=== PATIENT | female | born 1955 | race African-American/Black ===

== ENCOUNTER 2016-09-25 13:46 | Emergency (ER) | payer MEDICARE, MEDICAID ==
--- NOTE | 2016-09-25 17:44 | ER Document Report ---
ED Respiratory Problem - General Chief Complaint: Shoulder Pain Stated Complaint: BACK PAIN Time seen by provider: 16:45 Mode of Arrival: Ambulatory Information source: Patient Notes: 60-year-old female presented to ED for right shoulder and upper back pain for 3 days denies any injury or trauma states she's been coughing since Sunday TRAVEL OUTSIDE OF THE [place] IN LAST 30 DAYS: No - HPI Patient complains to provider of: Cough, Short of breath Onset: Last week Duration: Continuous Initiating Event: URI Quality of pain: Sharp Severity: Moderate Pain Level: 3 Short of Breath: Mild Cough: Nonproductive Sputum amount: None Associated symptoms: Cough, PND, Runny nose, Sinus pain/pressure, Other - Back and right shoulder pain Similar symptoms previously: Yes Recently seen / treated by doctor: No - Related Data Allergies/Adverse Reactions: No Known Allergies Allergy (Verified 09/25/16 14:01) Past Medical History - General Information source: Patient - Social History Smoking Status: Current Every Day Smoker Cigarette use (# per day): Yes - 1/3ppd Chew tobacco use (# tins/day): No Frequency of alcohol use: None Drug Abuse: None Lives with: Alone Family History: None - Past Medical History Cardiac Medical History: Reports: Hx Atrial Fibrillation, Hx Congestive Heart Failure, Hx Coronary Artery Disease, Hx Heart Attack, Hx Hypercholesterolemia, Hx Hypertension, Hx Heart Murmur Pulmonary Medical History: Reports: Hx Bronchitis, Hx COPD Denies: Hx Tuberculosis Neurological Medical History: Reports: None Endocrine Medical History: Reports: Hx Hypothyroidism Renal/ Medical History: Reports: None Malignancy Medical History: Reports: None GI Medical History: Reports: None Musculoskeltal Medical History: Reports Hx Arthritis Skin Medical History: Reports None Psychiatric Medical History: Reports: None Traumatic Medical History: Reports: None Infectious Medical History: Reports: None Past Surgical History: Reports: Hx Breast Surgery - bilat cysts, Hx Cardiac Surgery - CABG; defib, Hx Section, Hx Coronary Artery Bypass Graft - 2009 one-vessel bypass, Hx Pacemaker - Biventricular AICD/pacemaker, Hx Tubal Ligation, Hx Valve Replacement - Mitral valve and tricuspid valve repair - Immunizations Immunizations up to date: Yes Hx Diphtheria, Pertussis, Tetanus Vaccination: Yes Hx Pneumococcal Vaccination: 09/24/13 Review of Systems - Review of Systems Constitutional: No symptoms reported EENT: Nose discharge, Sinus discharge Cardiovascular: No symptoms reported Respiratory: Cough Gastrointestinal: No symptoms reported Genitourinary: No symptoms reported Female Genitourinary: No symptoms reported Musculoskeletal: Back pain - Upper right back and shoulder pain Skin: No symptoms reported Hematologic/Lymphatic: No symptoms reported Neurological/Psychological: No symptoms reported Physical Exam - Vital signs Vitals: Temp Pulse Resp BP Pulse Ox 97.4 F 66 20 117/59 L 100 09/25/16 13:55 09/25/16 13:55 09/25/16 13:55 09/25/16 13:55 09/25/16 13:55 Interpretation: Normal - General General appearance: Appears well, Alert - HEENT Head: Normocephalic, Atraumatic Eyes: Normal Pupils: PERRL Ears: Normal External canal: Normal Tympanic membrane: Normal Sinus: Normal Nasal: Purulent discharge Mouth/Lips: Normal Mucous membranes: Normal Pharynx: Normal Neck: Normal - Respiratory Respiratory status: No respiratory distress Chest status: Nontender Breath sounds: Nonproductive cough, Rales Chest palpation: Normal - Cardiovascular Rhythm: Regular Heart sounds: Normal auscultation Murmur: No - Abdominal Inspection: Normal Distension: No distension Bowel sounds: Normal Tenderness: Nontender Organomegaly: No organomegaly - Back Back: Normal, Nontender - Extremities General upper extremity: Normal inspection, Nontender, Normal color, Normal ROM , Normal temperature General lower extremity: Normal inspection, Nontender, Normal color, Normal ROM , Normal temperature, Normal weight bearing. No: Irena's sign - Neurological Neuro grossly intact: Yes Cognition: Normal Orientation: AAOx4 Eliane Coma Scale Eye Opening: Spontaneous Rockwell Coma Scale Verbal: Oriented Eliane Coma Scale Motor: Obeys Commands Rockwell Coma Scale Total: 15 Speech: Normal Motor strength normal: LUE, RUE, LLE, RLE Sensory: Normal - Psychological Associated symptoms: Normal affect, Normal mood - Skin Skin Temperature: Warm Skin Moisture: Dry Skin Color: Normal Course - Re-evaluation Re-evalutation: 09/25/16 22:50 Discussed x-rays with patient and family and written report given to patient and family - Vital Signs Vital signs: Temp Pulse Resp BP Pulse Ox 97.8 F 68 18 118/65 95 09/25/16 18:42 09/25/16 18:42 09/25/16 18:42 09/25/16 18:42 09/25/16 18:42 - Diagnostic Test Radiology reviewed: Image reviewed, Reports reviewed Discharge - Discharge Clinical Impression: Upper respiratory infection Qualifiers: URI type: unspecified URI Qualified Code(s): J06.9 - Acute upper respiratory infection, unspecified Back pain Qualifiers: Back pain location: thoracic back pain Chronicity: acute Back pain laterality: right Qualified Code(s): M54.6 - Pain in thoracic spine Right shoulder pain Qualifiers: Chronicity: acute Qualified Code(s): M25.511 - Pain in right shoulder Condition: Stable Disposition: HOME, SELF-CARE Additional Instructions: UPPER RESPIRATORY ILLNESS: You have a viral infection of the respiratory passages -- a "cold." This common infection causes nasal congestion, drainage, and often sore throat and cough. It is highly contagious. The disease usually lasts about 10 to 14 days. There is no "cure" for the viral infection -- it must run its course. If there is a complication, such as bacterial infection in the nose, sinuses, middle ear, or bronchial tubes, antibiotics may be required. The antibiotics won't affect the virus. Drink plenty of fluids. A humidifier may help. An expectorant medication or decongestant may make you more comfortable. Use acetaminophen or ibuprofen for fever or aches. See the doctor if fever persists over two days, if there is any significant worsening of your symptoms, or if you simply fail to improve as expected. Upper Back Strain You have a strain of the upper back. "Strain" means stretching and partial tearing of muscle and tendon fibers. This can happen suddenly, such as when lifting, or can be due to chronic muscle tension. X-rays don't show back strain. X-rays are only taken if there's reason to suspect a problem in the bones. At first, you should cold-pack the painful area and rest. We often prescribe antiinflammatory medicine. If you are having muscle spasms, a muscle relaxer can help. As you begin to improve, it's important to strengthen and stretch the muscles. Your doctor will advise you on the proper care for your back at each stage in your recovery. You may be better in a few days -- or healing may take several weeks. If new symptoms develop ( such as radiation of pain, numbness, weakness, or tingling) occur, you should be re-examined. Further testing may be necessary Atelectasis Your symptoms are due to partial collapse of the lung, called atelectasis. When lung air sacs aren't filled properly with air, they can collapse. This is common after surgery. It may occur whenever breathing is weak or painful. To correct the collapse, we need to get your lung air sacs to open. Do breathing exercises for the next two days. Every 15 minutes while awake, rapidly suck in a full breath and hold it a few seconds. Sometimes we'll prescribe a machine to measure your progress. Call or return if there's increasing shortness of breath, fever or chills, increasing chest pain, productive cough, or coughing of blood. USE OF ACETAMINOPHEN (Tylenol): Acetaminophen may be taken for pain relief or fever control. It's much safer than aspirin, offering a wider range of "safe" dosages. It is safe during . Some brand names are Tylenol, Panadol, Datril, Anacin 3, Tempra, and Liquiprin. Acetaminophen can be repeated every four hours. The following are maximum recommended dosages: >89 pounds or adults 650 mg to 900 mg Acetaminophen can be repeated every four hours. Maximum dose not to exceed 4000 mg a day. Azithromycin Azithromycin (Zithromax) is a broad spectrum antibiotic in the same class as erythromycin. It can treat a variety of bacterial infections, but is most frequently used for respiratory infections. Azithromycin is extremely long-lasting. It accumulates in body tissues and continues to kill bacteria for many days. In order to improve absorption, Azithromycin should be taken at least one hour before or two hours after a meal. It does not have the same strong tendency to upset the stomach as erythromycin and is usually very well tolerated. Patients who have had a rash or other true allergic reactions to erythromycin should not take this medication. Call if you develop gastrointestinal distress, severe diarrhea, rash, hives, itching, or shortness of breath. SMOKING: If you smoke, you should stop smoking. The tar and chemicals in cigarette smoke are harmful. Smoking has been shown to cause: emphysema chronic bronchitis lung cancer mouth and throat cancer stomach and pancreas cancer premature aging defects In addition, smoking increases ear and lung infections in children of smokers. FOLLOW-UP CARE: If you have been referred to a physician for follow-up care, call the physician s office for an appointment as you were instructed or within the next two days. If you experience worsening or a significant change in your symptoms, notify the physician immediately or return to the Emergency Department at any time for re-evaluation. Prescriptions: Azithromycin [Zithromax 250 mg Tablet] 250 mg PO ASDIR PRN #6 tablet PRN Reason: Forms: Smoking Cessation Education, Return to Work Referrals: RONN GARCÍA MD [Primary Care Provider] - Follow up as needed
[2016-09-25 18:43] VITALS: BP 118/65
== END 2016-09-25 18:42 | disposition home or self-care (01) ==
LOC: ER 13:46
DX: J06.9 Acute upper respiratory infection, unspecified (principal); M54.6 Pain in thoracic spine; M25.511 Pain in right shoulder; R05 Cough; R06.02 Shortness of breath; F17.210 Nicotine dependence, cigarettes, uncomplicated; I48.91 Unspecified atrial fibrillation; I50.9 Heart failure, unspecified; I25.10 Atherosclerotic heart disease of native coronary artery without angina pectoris; E78.00 Pure hypercholesterolemia, unspecified; I10 Essential (primary) hypertension; J44.9 Chronic obstructive pulmonary disease, unspecified; E03.9 Hypothyroidism, unspecified; I25.2 Old myocardial infarction; Z95.1 Presence of aortocoronary bypass graft; Z95.810 Presence of automatic (implantable) cardiac defibrillator; Z95.2 Presence of prosthetic heart valve; Z98.51 Tubal ligation status
CPT/HCPCS: 71020; 87804; 99283

== ENCOUNTER → 2017-02-01 | Outpatient (CLI) | payer MEDICARE, MEDICAID ==
[2017-02-01 11:47] LABS: ANION GAP 14 (5-19); BLOOD UREA NITROGEN 34 mg/dL (7-20); CALCIUM 10.4 mg/dL (8.4-10.2); CARBON DIOXIDE 28 mmol/L (22-30); CHLORIDE 100 mmol/L (98-107); CREATININE RESULT 1.02 mg/dL (0.52-1.25); GLUCOSE 85 mg/dL (75-110); POTASSIUM 5.4 mmol/L (3.6-5.0); SODIUM 141.8 mmol/L (137-145)
== END ==
LOC: OD 10:46
PROVIDERS: ATTEND Internal Medicine
DX: R07.2 Precordial pain (principal); I50.22 Chronic systolic (congestive) heart failure; R06.09 Other forms of dyspnea; I25.10 Atherosclerotic heart disease of native coronary artery without angina pectoris; E78.4 Other hyperlipidemia; I42.8 Other cardiomyopathies; Z95.810 Presence of automatic (implantable) cardiac defibrillator; Z95.1 Presence of aortocoronary bypass graft; I34.0 Nonrheumatic mitral (valve) insufficiency; E87.5 Hyperkalemia; Z79.899 Other long term (current) drug therapy
CPT/HCPCS: 36415; 80048

== ENCOUNTER → 2017-02-14 | Outpatient (CLI) | payer MEDICARE, MEDICAID | LOC: OD 10:17 | PROVIDERS: ATTEND Internal Medicine | DX: R07.2 Precordial pain (principal); I50.22 Chronic systolic (congestive) heart failure; E87.5 Hyperkalemia; R06.09 Other forms of dyspnea; I25.10 Atherosclerotic heart disease of native coronary artery without angina pectoris; E78.4 Other hyperlipidemia; I34.0 Nonrheumatic mitral (valve) insufficiency; I42.8 Other cardiomyopathies; Z95.1 Presence of aortocoronary bypass graft; Z95.810 Presence of automatic (implantable) cardiac defibrillator; Z79.899 Other long term (current) drug therapy | CPT/HCPCS: 36415; 84132 ==

== ENCOUNTER → 2017-03-19 | Outpatient (CLI) | payer MEDICARE, MEDICAID ==
[2017-03-19 12:13] LABS: ANION GAP 10 (5-19); BLOOD UREA NITROGEN 17 mg/dL (7-20); CALCIUM 9.6 mg/dL (8.4-10.2); CARBON DIOXIDE 28 mmol/L (22-30); CHLORIDE 102 mmol/L (98-107); CREATININE RESULT 0.96 mg/dL (0.52-1.25); GLUCOSE 96 mg/dL (75-110); POTASSIUM 5.2 mmol/L (3.6-5.0); SODIUM 139.5 mmol/L (137-145)
== END ==
LOC: OD 10:59
PROVIDERS: ATTEND Internal Medicine
DX: R07.2 Precordial pain (principal); I50.22 Chronic systolic (congestive) heart failure; R06.09 Other forms of dyspnea; I25.10 Atherosclerotic heart disease of native coronary artery without angina pectoris; E78.4 Other hyperlipidemia; I42.8 Other cardiomyopathies; Z95.810 Presence of automatic (implantable) cardiac defibrillator; Z95.1 Presence of aortocoronary bypass graft; I34.0 Nonrheumatic mitral (valve) insufficiency; E87.5 Hyperkalemia; Z79.899 Other long term (current) drug therapy
CPT/HCPCS: 36415; 80048

== ENCOUNTER → 2017-05-10 | Outpatient (CLI) | payer MEDICARE, MEDICAID ==
[2017-05-10 14:12] LABS: ANION GAP 12 (5-19); BLOOD UREA NITROGEN 37 mg/dL (7-20); CALCIUM 9.9 mg/dL (8.4-10.2); CARBON DIOXIDE 29 mmol/L (22-30); CHLORIDE 100 mmol/L (98-107); CREATININE RESULT 1.42 mg/dL (0.52-1.25); GLUCOSE 99 mg/dL (75-110); SODIUM 141.2 mmol/L (137-145)
== END ==
LOC: OD 12:02
PROVIDERS: ATTEND Internal Medicine
DX: R07.2 Precordial pain (principal); I50.22 Chronic systolic (congestive) heart failure; R06.09 Other forms of dyspnea; I25.10 Atherosclerotic heart disease of native coronary artery without angina pectoris; E78.4 Other hyperlipidemia; I42.8 Other cardiomyopathies; Z95.810 Presence of automatic (implantable) cardiac defibrillator; Z95.1 Presence of aortocoronary bypass graft; I34.0 Nonrheumatic mitral (valve) insufficiency; E87.5 Hyperkalemia; Z79.899 Other long term (current) drug therapy
CPT/HCPCS: 36415; 80048

== ENCOUNTER 2017-10-05 09:50 | Emergency (ER) | payer MEDICARE, MEDICAID ==
[2017-10-05] MEDS ORDERED: ASPIRIN 81 MG TABLET, CHEWABLE PO ONE (11:02)
--- NOTE | 2017-10-05 11:06 | ER Document Report ---
ED Medical Screen (RME) - General Chief Complaint: Swelling of Lower Extremity Stated Complaint: LEG SWELLING Time Seen by Provider: 10/05/17 10:59 Notes: 61-year-old female here with complaints of bilateral leg swelling that started yesterday. She states this is the first time she has had leg swelling since her valve replacements in [place] several months ago. She also states that her baseline shortness of breath and chest pain has worsened since yesterday. She also reports that "I have a very weak heart" but does not know her ejection fraction. EXAM 1+ pitting edema bilateral lower extremities TRAVEL OUTSIDE OF THE [place] IN LAST 30 DAYS: No - Related Data Allergies/Adverse Reactions: No Known Allergies Allergy (Verified 10/05/17 09:51) Past Medical History - Past Medical History Cardiac Medical History: Reports: Hx Atrial Fibrillation, Hx Congestive Heart Failure, Hx Coronary Artery Disease, Hx Heart Attack, Hx Hypercholesterolemia, Hx Hypertension, Hx Heart Murmur Pulmonary Medical History: Reports: Hx Bronchitis, Hx COPD Denies: Hx Tuberculosis Endocrine Medical History: Reports: Hx Hypothyroidism Musculoskeltal Medical History: Reports Hx Arthritis Skin Medical History: Denies Hx MRSA Psychiatric Medical History: Denies: Hx Depression Past Surgical History: Reports: Hx Breast Surgery - bilat cysts, Hx Cardiac Surgery - CABG; defib, Hx Section, Hx Coronary Artery Bypass Graft - 2009 one-vessel bypass, Hx Pacemaker - Biventricular AICD/pacemaker, Hx Tubal Ligation, Hx Valve Replacement - Mitral valve and tricuspid valve repair - Immunizations Immunizations up to date: Yes Hx Diphtheria, Pertussis, Tetanus Vaccination: Yes Physical Exam - Vital signs Vitals: Temp Pulse Resp BP Pulse Ox 98.1 F 70 20 107/46 L 100 10/05/17 10:11 10/05/17 10:11 10/05/17 10:11 10/05/17 10:11 10/05/17 10:11 Course - Vital Signs Vital signs: Temp Pulse Resp BP Pulse Ox 98.1 F 70 20 107/46 L 100 10/05/17 10:11 10/05/17 10:11 10/05/17 10:11 10/05/17 10:11 10/05/17 10:11
[2017-10-05 11:39] LABS: ABSOLUTE BASOPHILS # (AUTO) 0.1 10^3/uL (0.0-0.2); ABSOLUTE EOSINOPHILS # (AUTO) 1.2 10^3/uL (0.0-0.6); ABSOLUTE LYMPHOCYTES (AUTO) 1.4 10^3/uL (0.5-4.7); ABSOLUTE MONOCYTES (AUTO) 0.5 10^3/uL (0.1-1.4); ABSOLUTE NEUT (AUTO) 3.4 10^3/uL (1.7-8.2); BASOPHILS % (AUTO) 1.3 % (0-2); EOSINOPHILS % (AUTO) 18.1 % (0-6); HEMOGLOBIN 10.2 g/dL (12.0-15.5); LYMPHOCYTES % (AUTO) 21.3 % (13-45); MEAN CORPUSCULAR HEMOGLOBIN 28.8 pg (27.0-33.4); MEAN CORPUSCULAR HGB CONC 32.1 g/dL (32.0-36.0); MEAN CORPUSCULAR VOLUME 90 fl (80-97); MONOCYTES % (AUTO) 7.5 % (3-13); PLATELET COUNT 232 10^3/uL (150-450); RED BLOOD COUNT 3.56 10^6/uL (3.72-5.28); RED CELL DISTRIBUTION WIDTH 14.4 % (11.5-14.0); SEGMENTED NEUTROPHILS % (AUTO) 51.8 % (42-78); TOTAL CELLS COUNTED % (AUTO) 100 %; WHITE BLOOD COUNT 6.6 10^3/uL (4.0-10.5)
[2017-10-05 12:12] LABS: ANION GAP 12 (5-19); BLOOD UREA NITROGEN 21 mg/dL (7-20); CALCIUM 10.2 mg/dL (8.4-10.2); CARBON DIOXIDE 30 mmol/L (22-30); CHLORIDE 102 mmol/L (98-107); GLUCOSE 76 mg/dL (75-110); POTASSIUM 5.5 mmol/L (3.6-5.0); SODIUM 144.1 mmol/L (137-145)
--- NOTE | 2017-10-05 12:20 | RADIOLOGY REPORT (SQ) ---
EXAM DESCRIPTION: CHEST PA/LAT COMPLETED DATE/TIME: 10/05/2017 11:47 am REASON FOR STUDY: SOB; eval pulm edema COMPARISON: 09/25/2016 NUMBER OF VIEWS: Two view. TECHNIQUE: Frontal and lateral radiographic views of the chest acquired. LIMITATIONS: None. FINDINGS: LUNGS AND PLEURA: No opacities, masses or pneumothorax. No pleural effusion. MEDIASTINUM AND HILAR STRUCTURES: Stable. HEART AND VASCULAR STRUCTURES: Heart enlarged without failure. Aorta normal for age. BONES: No acute findings. HARDWARE: CABG. Defibrillator. OTHER: No other significant finding. IMPRESSION: No acute findings in the chest. TECHNICAL DOCUMENTATION: JOB ID: [id number] [employer]- All Rights Reserved
[2017-10-05 12:30] LABS: TROPONIN I 0.047 ng/mL
--- NOTE | 2017-10-05 13:39 | ER Document Report ---
ED General - General Chief Complaint: Swelling of Lower Extremity Stated Complaint: LEG SWELLING Time Seen by Provider: 10/05/17 10:59 Notes: Patient had valvular heart repair done approximately 4 months ago. Noticed increasing swelling of her lower extremities. No shortness of breath. No other chest pain. No worsening symptoms at this time. Was told to come here. TRAVEL OUTSIDE OF THE [place] IN LAST 30 DAYS: No - HPI Onset: Last week Onset/Duration: Gradual Quality of pain: No pain Severity: Mild Associated symptoms: None - Related Data Allergies/Adverse Reactions: No Known Allergies Allergy (Verified 10/05/17 09:51) Home Medications: Current Home Medications Albuterol Sulfate [Proair HFA] 1 - 2 puff IH Q4 PRN 10/05/17 [History] Apixaban [Eliquis] 5 mg PO BID 10/05/17 [History] Aspirin [Aspirin EC] 81 mg PO DAILY 10/05/17 [History] Carvedilol 3.125 mg PO BID 10/05/17 [History] Dofetilide 250 mcg PO Q12 10/05/17 [History] Famotidine 20 mg PO BID 10/05/17 [History] Furosemide 80 mg PO DAILY 10/05/17 [History] Gabapentin 100 mg PO DAILY 10/05/17 [History] Latanoprost 2.5 ml OP DAILY 10/05/17 [History] Nitroglycerin 0.4 mg SL PRN PRN 10/05/17 [History] Oxycodone HCl/Acetaminophen [Oxycodone-Acetaminophen 5-325] 1 each PO Q4 [History] Potassium Chloride 20 meq PO DAILY 10/05/17 [History] Pravastatin Sodium 40 mg PO DAILY 10/05/17 [History] Ramipril [Altace] 5 mg PO DAILY 10/05/17 [History] Past Medical History - General Information source: Patient - Social History Smoking Status: Never Smoker Chew tobacco use (# tins/day): No Frequency of alcohol use: None Drug Abuse: None Family History: None Patient has suicidal ideation: No Patient has homicidal ideation: No - Past Medical History Cardiac Medical History: Reports: Hx Atrial Fibrillation, Hx Congestive Heart Failure, Hx Coronary Artery Disease, Hx Heart Attack, Hx Hypercholesterolemia, Hx Hypertension, Hx Heart Murmur Pulmonary Medical History: Reports: Hx Bronchitis, Hx COPD Denies: Hx Tuberculosis Endocrine Medical History: Reports: Hx Hypothyroidism Renal/ Medical History: Denies: Hx Peritoneal Dialysis Musculoskeltal Medical History: Reports Hx Arthritis Skin Medical History: Denies Hx MRSA Psychiatric Medical History: Denies: Hx Depression Past Surgical History: Reports: Hx Breast Surgery - bilat cysts, Hx Cardiac Surgery - CABG; defib, Hx Section, Hx Coronary Artery Bypass Graft - 2009 one-vessel bypass, Hx Pacemaker - Biventricular AICD/pacemaker, Hx Tubal Ligation, Hx Valve Replacement - Mitral valve and tricuspid valve repair - Immunizations Immunizations up to date: Yes Hx Diphtheria, Pertussis, Tetanus Vaccination: Yes Hx Pneumococcal Vaccination: 09/24/13 Review of Systems - Review of Systems Constitutional: No symptoms reported EENT: No symptoms reported Cardiovascular: Edema Respiratory: No symptoms reported Gastrointestinal: No symptoms reported Genitourinary: No symptoms reported Female Genitourinary: No symptoms reported Musculoskeletal: No symptoms reported Skin: No symptoms reported Hematologic/Lymphatic: No symptoms reported Neurological/Psychological: No symptoms reported Physical Exam - Vital signs Vitals: Temp Pulse Resp BP Pulse Ox 98.1 F 70 20 107/46 L 100 10/05/17 10:11 10/05/17 10:11 10/05/17 10:11 10/05/17 10:11 10/05/17 10:11 Interpretation: Normal - General General appearance: Appears well, Alert - HEENT Head: Normocephalic, Atraumatic Eyes: Normal Pupils: PERRL - Respiratory Respiratory status: No respiratory distress Chest status: Nontender Breath sounds: Normal Chest palpation: Normal - Cardiovascular Rhythm: Regular Heart sounds: Normal auscultation Murmur: No - Abdominal Inspection: Normal Distension: No distension Bowel sounds: Normal Tenderness: Nontender Organomegaly: No organomegaly - Back Back: Normal, Nontender - Extremities General upper extremity: Normal inspection, Nontender, Normal color, Normal ROM , Normal temperature General lower extremity: Normal inspection, Nontender, Normal color, Normal ROM , Normal temperature, Normal weight bearing, Other - Trace amount of edema bilaterally. Trace pitting bilaterally. No: Irena's sign - Neurological Neuro grossly intact: Yes Cognition: Normal Orientation: AAOx4 Eliane Coma Scale Eye Opening: Spontaneous Eliane Coma Scale Verbal: Oriented Eliane Coma Scale Motor: Obeys Commands Eliane Coma Scale Total: 15 Speech: Normal Motor strength normal: LUE, RUE, LLE, RLE Sensory: Normal - Psychological Associated symptoms: Normal affect, Normal mood - Skin Skin Temperature: Warm Skin Moisture: Dry Skin Color: Normal Course - Re-evaluation Re-evalutation: 10/05/17 16:06 Basic labs ordered. Chest x-ray ordered. Slightly elevated BNP. Consulted patient's Dr Murphy with cardiology recommends giving her IV dose of Lasix now. Starting her on Zaroxolyn twice daily. Follow-up on Sunday. - Vital Signs Vital signs: Temp Pulse Resp BP Pulse Ox 98.3 F 70 20 133/75 H 99 10/05/17 14:00 10/05/17 14:00 10/05/17 14:00 10/05/17 14:00 10/05/17 14:00 - Laboratory Result Diagrams: 10/05/17 11:20 10/05/17 11:20 Laboratory results interpreted by me: 10/05/17 10/05/17 10/05/17 11:20 11:20 11:20 RBC 3.56 L Hgb 10.2 L Hct 32.0 L RDW 14.4 H Eosinophils % 18.1 H Absolute Eosinophils 1.2 H Potassium 5.5 H BUN 21 H Est GFR ( Amer) 56 L Est GFR (Non-Af Amer) 46 L NT-Pro-B Natriuret Pep 5030 H Discharge - Discharge Clinical Impression: Heart failure Qualifiers: Heart failure type: unspecified Heart failure chronicity: acute on chronic Qualified Code(s): I50.9 - Heart failure, unspecified Condition: Good Disposition: HOME, SELF-CARE Instructions: Congestive Heart Failure ([facility]) Additional Instructions: 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 Please continue all of your other medications as well. Please follow-up with the garbage truck driver office on Sunday. They are expecting your call. Referrals: RONN GARCÍA MD [Primary Care Provider] - Follow up as needed SATINDER CHAVEZ MD [ACTIVE STAFF] - Follow up in 3-5 days
[2017-10-05] MEDS ORDERED: FUROSEMIDE INJ/PF 40 MG/4 ML SDV IV ONE (16:01)
[2017-10-05] MEDS ORDERED: METOLAZONE 2.5 MG TABLET PO ONE (16:02)
[2017-10-05 19:58] VITALS: BP 133/67
== END 2017-10-05 17:10 | disposition home or self-care (01) ==
LOC: ER 09:50
DX: I50.9 Heart failure, unspecified (principal); M79.89 Other specified soft tissue disorders; Z79.899 Other long term (current) drug therapy
CPT/HCPCS: 99284; 96374; 36415; 85025; 80048; 84484; 83880; 71046; A9270 ×2; J1940; J3490

== ENCOUNTER → 2017-10-12 | Outpatient (CLI) | payer MEDICARE, MEDICAID | LOC: OD 12:26 | PROVIDERS: ATTEND Internal Medicine | DX: I50.22 Chronic systolic (congestive) heart failure (principal); R06.09 Other forms of dyspnea; E78.4 Other hyperlipidemia; I42.8 Other cardiomyopathies; Z95.810 Presence of automatic (implantable) cardiac defibrillator; E87.5 Hyperkalemia; R07.2 Precordial pain; I25.10 Atherosclerotic heart disease of native coronary artery without angina pectoris; I34.0 Nonrheumatic mitral (valve) insufficiency; Z95.1 Presence of aortocoronary bypass graft; Z79.899 Other long term (current) drug therapy | CPT/HCPCS: 36415; 84132 ==

== ENCOUNTER → 2017-11-05 | Outpatient (CLI) | payer MEDICARE, MEDICAID ==
[2017-11-05 11:13] LABS: ANION GAP 8 (5-19); BLOOD UREA NITROGEN 25 mg/dL (7-20); CALCIUM 10.7 mg/dL (8.4-10.2); CARBON DIOXIDE 32 mmol/L (22-30); CHLORIDE 102 mmol/L (98-107); GLUCOSE 99 mg/dL (75-110); POTASSIUM 4.6 mmol/L (3.6-5.0); SODIUM 141.8 mmol/L (137-145)
== END ==
LOC: OD 09:46
PROVIDERS: ATTEND Internal Medicine
DX: I50.22 Chronic systolic (congestive) heart failure (principal); R07.2 Precordial pain; R06.09 Other forms of dyspnea; E78.4 Other hyperlipidemia; I42.8 Other cardiomyopathies; Z95.810 Presence of automatic (implantable) cardiac defibrillator; Z95.1 Presence of aortocoronary bypass graft; I34.0 Nonrheumatic mitral (valve) insufficiency; E87.5 Hyperkalemia; Z79.899 Other long term (current) drug therapy
CPT/HCPCS: 36415; 80048

== ENCOUNTER → 2018-01-09 | Outpatient (CLI) | payer MEDICARE, MEDICAID ==
[2018-01-09 16:29] LABS: ANION GAP 11 (5-19); BLOOD UREA NITROGEN 33 mg/dL (7-20); CARBON DIOXIDE 32 mmol/L (22-30); CHLORIDE 99 mmol/L (98-107); GLUCOSE 89 mg/dL (75-110); POTASSIUM 4.7 mmol/L (3.6-5.0); SODIUM 142.1 mmol/L (137-145)
== END ==
LOC: OD 14:58
PROVIDERS: ATTEND Internal Medicine
DX: I50.22 Chronic systolic (congestive) heart failure (principal); R06.09 Other forms of dyspnea; Z95.2 Presence of prosthetic heart valve; E78.4 Other hyperlipidemia; I42.8 Other cardiomyopathies; Z95.810 Presence of automatic (implantable) cardiac defibrillator; Z95.1 Presence of aortocoronary bypass graft; E87.5 Hyperkalemia; R07.2 Precordial pain; I25.10 Atherosclerotic heart disease of native coronary artery without angina pectoris; I34.0 Nonrheumatic mitral (valve) insufficiency; Z79.899 Other long term (current) drug therapy
CPT/HCPCS: 36415; 80048

== ENCOUNTER 2018-07-02 04:20 | Inpatient (IN) | payer MEDICARE, MEDICAID ==
[2018-07-02] MEDS ORDERED: NORMAL SALINE 500 ML IV ONE ×2 (04:35→06:33)
[2018-07-02] MEDS ORDERED: PROMETHAZINE HCL INJ 25 MG/1 ML VIAL IM ONE (04:35)
--- NOTE | 2018-07-02 04:38 | ER Document Report ---
Doctor's Note Notes: 07/02/18 04:36 I performed a quick triage evaluation of the patient. Patient is a 62-year-old female who presents with complaint of vomiting diarrhea for over 24 hours. No fevers. No blood in the stool but she says her stools are dark green in color. Says stools are watery. She denies any antibiotic use in the last month. She says she has diffuse crampy abdominal pain is worse in the center of her abdomen. She denies anything like this in the past. She is on multiple medications but she says she is unable to take them because she vomits every time she takes the medications. She denies any travel outside the country. No drinking of untreated water. No eating of undercooked foods. On exam patient is nauseous and dry heaving at times. Abdomen is diffusely mildly tender. I have ordered blood work, stool culture, fluids, nausea medicine to begin her workup.
[2018-07-02 05:15] LABS: ABSOLUTE EOSINOPHILS # (AUTO) 0.1 10^3/uL (0.0-0.6); ABSOLUTE LYMPHOCYTES (AUTO) 0.9 10^3/uL (0.5-4.7); ABSOLUTE MONOCYTES (AUTO) 0.6 10^3/uL (0.1-1.4); ABSOLUTE NEUT (AUTO) 8.6 10^3/uL (1.7-8.2); BASOPHILS % (AUTO) 0.4 % (0-2); EOSINOPHILS % (AUTO) 0.8 % (0-6); HEMATOCRIT 30.7 % (36.0-47.0); HEMOGLOBIN 10.3 g/dL (12.0-15.5); LYMPHOCYTES % (AUTO) 8.7 % (13-45); MEAN CORPUSCULAR HEMOGLOBIN 30.3 pg (27.0-33.4); MEAN CORPUSCULAR HGB CONC 33.7 g/dL (32.0-36.0); MEAN CORPUSCULAR VOLUME 90 fl (80-97); MONOCYTES % (AUTO) 5.5 % (3-13); PLATELET COUNT 238 10^3/uL (150-450); RED BLOOD COUNT 3.41 10^6/uL (3.72-5.28); RED CELL DISTRIBUTION WIDTH 15.5 % (11.5-14.0); SEGMENTED NEUTROPHILS % (AUTO) 84.6 % (42-78); TOTAL CELLS COUNTED % (AUTO) 100 %; WHITE BLOOD COUNT 10.1 10^3/uL (4.0-10.5)
[2018-07-02 05:34] LABS: ALANINE AMINOTRANSFERASE 9 U/L (9-52); ALBUMIN 4.4 g/dL (3.5-5.0); ALKALINE PHOSPHATASE 92 U/L (38-126); ANION GAP 11 (5-19); ASPARTATE AMINO TRANSFERASE 33 U/L (14-36); BILIRUBIN,DIRECT 0.6 mg/dL (0.0-0.4); BILIRUBIN,TOTAL 2.6 mg/dL (0.2-1.3); BLOOD UREA NITROGEN 19 mg/dL (7-20); CALCIUM 9.9 mg/dL (8.4-10.2); CARBON DIOXIDE 22 mmol/L (22-30); CHLORIDE 110 mmol/L (98-107); GLUCOSE 127 mg/dL (75-110); POTASSIUM 3.9 mmol/L (3.6-5.0); TOTAL PROTEIN 7.9 g/dL (6.3-8.2)
--- NOTE | 2018-07-02 06:29 | ER Document Report ---
ED GI/ - General Chief Complaint: Nausea/Vomiting/Diarrhea Stated Complaint: ABDOMINAL PAIN Time Seen by Provider: 07/02/18 04:30 Notes: 62-year-old female to the emergency department chief complaint of nausea, vomiting, diarrhea and abdominal pain. Symptoms started yesterday. Patient does have significant cardiac history. Has had open heart surgery. Bypass surgery. On blood thinners. Denies any blood in stool. Denies any fever at this time. Feels thirsty but cannot keep anything down. Has not taken her medications this morning. TRAVEL OUTSIDE OF THE [place] IN LAST 30 DAYS: Yes - HPI Patient complains to provider of: Abdominal pain, Diarrhea, Vomiting Onset: Yesterday Severity at maximum: Moderate Severity in ED: Moderate Pain Level: 2 - Related Data Allergies/Adverse Reactions: No Known Allergies Allergy (Verified 10/05/17 09:51) Past Medical History - General Information source: Patient - Social History Smoking Status: Current Some Day Smoker Chew tobacco use (# tins/day): No Frequency of alcohol use: None Drug Abuse: None Lives with: Spouse/Significant other Family History: None Patient has suicidal ideation: No Patient has homicidal ideation: No - Past Medical History Cardiac Medical History: Reports: Hx Atrial Fibrillation, Hx Congestive Heart Failure, Hx Coronary Artery Disease, Hx Heart Attack, Hx Hypercholesterolemia, Hx Hypertension, Hx Heart Murmur Pulmonary Medical History: Reports: Hx Bronchitis, Hx COPD Denies: Hx Tuberculosis Endocrine Medical History: Reports: Hx Hypothyroidism Renal/ Medical History: Denies: Hx Peritoneal Dialysis Musculoskeletal Medical History: Reports Hx Arthritis Skin Medical History: Denies Hx MRSA Psychiatric Medical History: Denies: Hx Depression Past Surgical History: Reports: Hx Breast Surgery - bilat cysts, Hx Cardiac Surgery - CABG; defib, Hx Section, Hx Coronary Artery Bypass Graft - 2008 one-vessel bypass, Hx Pacemaker - Biventricular AICD/pacemaker, Hx Tubal Ligation, Hx Valve Replacement - Mitral valve and tricuspid valve repair - Immunizations Immunizations up to date: Yes Hx Diphtheria, Pertussis, Tetanus Vaccination: Yes Hx Pneumococcal Vaccination: 09/24/13 Review of Systems - Review of Systems Notes: Constitutional: denies: Chills, Diaphoresis, Fever, Malaise, Weakness EENT: denies: Eye discharge, Blurred vision, Tearing, Double vision, Nose congestion, Nose discharge, Throat swelling, Mouth pain Cardiovascular: denies: Palpitations, Heart racing, Orthopnea, Dyspnea, Chest pain Respiratory: denies: Cough, Hurts to breathe, Wheezing, Shortness of breath Gastrointestinal: Consistent with nausea, vomiting, diarrhea, abdominal pain Genitourinary: denies: Burning, Dysuria, Discharge, Frequency, Flank pain, Hematuria Musculoskeletal: denies: Joint pain, Joint swelling, Muscle pain, Muscle stiffness, back pain Hematologic/Lymphatic: denies: Anemia, Easy bleeding, Easy bruising, Blood clots Neurological/Psychological: denies: Confusion, Dementia, Depression, Loss of consciousness Skin: No lesions, no masses, no skin breakdown, no abscesses Physical Exam - Vital signs Vitals: Resp Pulse Ox 19 99 07/02/18 04:27 07/02/18 04:27 Interpretation: Normal - General General appearance: Appears well, Alert - HEENT Head: Normocephalic, Atraumatic Eyes: Normal Pupils: PERRL - Respiratory Respiratory status: No respiratory distress Chest status: Nontender Breath sounds: Normal Chest palpation: Normal - Cardiovascular Rhythm: Regular Heart sounds: Normal auscultation Murmur: No - Abdominal Inspection: Normal Distension: No distension Bowel sounds: Hyperactive Tenderness: Tender - In the epigastric and midline abdominal area. Organomegaly: No organomegaly - Back Back: Normal, Nontender - Extremities General upper extremity: Normal inspection, Nontender, Normal color, Normal ROM , Normal temperature General lower extremity: Normal inspection, Nontender, Normal color, Normal ROM , Normal temperature, Normal weight bearing. No: Irena's sign - Neurological Neuro grossly intact: Yes Cognition: Normal Orientation: AAOx4 [place] Coma Scale Eye Opening: Spontaneous [place]iane Coma Scale Verbal: Oriented [place]iane Coma Scale Motor: Obeys Commands [place] Coma Scale Total: 15 Speech: Normal Motor strength normal: LUE, RUE, LLE, RLE Sensory: Normal - Psychological Associated symptoms: Normal affect, Normal mood - Skin Skin Temperature: Warm Skin Moisture: Dry Skin Color: Normal Course - Re-evaluation Re-evalutation: 07/02/18 07:00 At this time patient has a slightly elevated WBC count. Will get CT abdomen and pelvis to look for pathology. Otherwise labs look fairly unremarkable and at baseline. 07/02/18 11:47 Laboratory 07/02/18 07/02/18 07/02/18 05:05 05:05 05:05 WBC 10.1 RBC 3.41 L Hgb 10.3 L Hct 30.7 L MCV 90 MCH 30.3 MCHC 33.7 RDW 15.5 H Plt Count 238 Seg Neutrophils % 84.6 H Lymphocytes % 8.7 L Monocytes % 5.5 Eosinophils % 0.8 Basophils % 0.4 Absolute Neutrophils 8.6 H Absolute Lymphocytes 0.9 Absolute Monocytes 0.6 Absolute Eosinophils 0.1 Absolute Basophils 0.0 Sodium 143.0 Potassium 3.9 Chloride 110 H Carbon Dioxide 22 Anion Gap 11 BUN 19 Creatinine 0.84 Est GFR ( Amer) > 60 Est GFR (Non-Af Amer) > 60 Glucose 127 H Calcium 9.9 Total Bilirubin 2.6 H Direct Bilirubin 0.6 H Neonat Total Bilirubin Not Reportable Neonat Direct Bilirubin Not Reportable Neonat Indirect Bili Not Reportable AST 33 ALT 9 Alkaline Phosphatase 92 Troponin I 0.054 Total Protein 7.9 Albumin 4.4 Lipase 43.0 Urine Color Urine Appearance Urine pH Ur Specific [place] Urine Protein Urine Glucose (UA) Urine Ketones Urine Blood Urine Nitrite Urine Bilirubin Urine Urobilinogen Ur Leukocyte Esterase Urine WBC (Auto) Urine RBC (Auto) U Hyaline Cast (Auto) Urine Bacteria (Auto) Squamous Epi Cells Auto Urine Mucus (Auto) Urine Ascorbic Acid C. difficile Tox (PCR) 07/02/18 07/02/18 07:32 07:32 WBC RBC Hgb Hct MCV MCH MCHC RDW Plt Count Seg Neutrophils % Lymphocytes % Monocytes % Eosinophils % Basophils % Absolute Neutrophils Absolute Lymphocytes Absolute Monocytes Absolute Eosinophils Absolute Basophils Sodium Potassium Chloride Carbon Dioxide Anion Gap BUN Creatinine Est GFR ( Amer) Est GFR (Non-Af Amer) Glucose Calcium Total Bilirubin Direct Bilirubin Neonat Total Bilirubin Neonat Direct Bilirubin Neonat Indirect Bili AST ALT Alkaline Phosphatase Troponin I Total Protein Albumin Lipase Urine Color DARK YELLOW Urine Appearance HAZY Urine pH 6.0 Ur Specific [place] 1.020 Urine Protein 100 H Urine Glucose (UA) NEGATIVE Urine Ketones 25 H Urine Blood MODERATE H Urine Nitrite NEGATIVE Urine Bilirubin NEGATIVE Urine Urobilinogen NEGATIVE Ur Leukocyte Esterase NEGATIVE Urine WBC (Auto) 6 Urine RBC (Auto) 3 U Hyaline Cast (Auto) 23 Urine Bacteria (Auto) TRACE Squamous Epi Cells Auto 11 Urine Mucus (Auto) OCC Urine Ascorbic Acid NEGATIVE C. difficile Tox (PCR) NEGATIVE Abdomen/Pelvis CT 07/02/18 00:00 IMPRESSION: Bowel wall thickening in the cecum could be artifactual due to nondistention. Other possibilities include inflammatory, infectious or neoplastic process. Chest X-Ray 07/02/18 06:32 IMPRESSION: Pulmonary vascular congestion 2010 [facility] [employer] [facility]- All Rights Reserved - Vital Signs Vital signs: Temp Pulse Resp BP Pulse Ox 26 H 140/72 H 97 07/02/18 11:00 07/02/18 10:09 07/02/18 11:00 - Laboratory Result Diagrams: 07/02/18 05:05 07/02/18 05:05 Laboratory results interpreted by me: 07/02/18 07/02/18 07/02/18 05:05 05:05 07:32 RBC 3.41 L Hgb 10.3 L Hct 30.7 L RDW 15.5 H Seg Neutrophils % 84.6 H Lymphocytes % 8.7 L Absolute Neutrophils 8.6 H Chloride 110 H Glucose 127 H Total Bilirubin 2.6 H Direct Bilirubin 0.6 H Urine Protein 100 H Urine Ketones 25 H Urine Blood MODERATE H - EKG Interpretation by Me When compared to previous EKG there are: No significant change Additional EKG results interpreted by me: 07/02/18 08:43 Atrial ventricular dual paced pacemaker Discharge - Discharge Clinical Impression: Acute colitis Congestive heart failure (CHF) Qualifiers: Heart failure type: unspecified Heart failure chronicity: unspecified Qualified Code(s): I50.9 - Heart failure, unspecified Condition: Good Disposition: ADMITTED INPATIENT Admitting Provider: [facility] Admitted: Telemetry Referrals: MAHOGANY DAVID MD [Primary Care Provider] - Follow up as needed
--- NOTE | 2018-07-02 07:18 | RADIOLOGY REPORT (SQ) ---
EXAM DESCRIPTION: XR CHEST 1 VIEW COMPLETED DATE/TME: 07/02/2018 06:32 CLINICAL HISTORY: 62 years, Female, cough COMPARISON: 10/05/2017 NUMBER OF VIEWS: One TECHNIQUE: AP view of the chest LIMITATIONS: None. FINDINGS: There is pulmonary vascular congestion. The heart is enlarged with a left chest wall pacemaker/AICD in place. There is no pneumothorax or pleural effusion. There is no acute fracture. IMPRESSION: Pulmonary vascular congestion 2010 [facility] [employer]- All Rights Reserved
[2018-07-02] MEDS ORDERED: ONDANSETRON HCL INJ/PF 4 MG/2 ML SDV IV PRN (07:26)
[2018-07-02] MEDS ORDERED: FENTANYL CITRATE INJ/PF 100 MCG/2 ML AMPUL IV ONE (07:26)
[2018-07-02 08:25] LABS: APPEARANCE,URINE HAZY; BILIRUBIN,URINE NEGATIVE (NEGATIVE); GLUCOSE, URINE NEGATIVE (NEGATIVE); KETONES,URINE 25 mg/dL (NEGATIVE); LEUKOCYTE ESTERASE,URINE NEGATIVE (NEGATIVE); NITRITE,URINE NEGATIVE (NEGATIVE); PROTEIN,URINE 100 mg/dL (NEGATIVE); UROBILINOGEN,URINE NEGATIVE mg/dL (<2.0)
[2018-07-02 08:27] LABS: COLOR,URINE DARK YELLOW
--- NOTE | 2018-07-02 10:32 | RADIOLOGY REPORT (SQ) ---
EXAM DESCRIPTION: CT ABD/PELVIS WITH IV ORAL COMPLETED DATE/TIME: 07/02/2018 10:05 am REASON FOR STUDY: abd pain and diarrhea COMPARISON: 07/05/2014 TECHNIQUE: CT scan of the abdomen and pelvis performed with intravenous and oral contrast using dmitry waqar scanning technique with dynamic intravenous contrast injection. Images reviewed with lung, soft t issue, and bone windows. Reconstructed coronal and sagittal MPR images reviewed. Delayed images for e valuation of the urinary system also acquired. All images stored on PACS. All CT scanners at this facility use dose modulation, iterative reconstruction, and/or weight based d osing when appropriate to reduce radiation dose to as low as reasonably achievable (ALARA). [facility]: Dose Right [facility]: CareDose [facility]: Dose Right [facility]: Teradose 4D [facility]: Viptable CONTRAST TYPE AND DOSE: contrast/concentration: Isovue 350.00 mg/ml; Total Contrast Delivered: 64.0 ml; Total Saline Delivered: 38.0 ml RENAL FUNCTION: Creatinine 0.8 RADIATION DOSE: CT Rad equipment meets quality standard of care and radiation dose reduction techniq ues were employed. CTDIvol: 5.1 - 6.4 mGy. DLP: 578 mGy-cm. . LIMITATIONS: None. FINDINGS: LOWER CHEST: Cardiomegaly. Defibrillator. LIVER: Normal size. No masses. No dilated ducts. SPLEEN: Normal size. No focal lesions. PANCREAS: No masses. No significant calcifications. No adjacent inflammation or peripancreatic fluid collections. Pancreatic duct not dilated. GALLBLADDER: Gallstones. No inflammatory changes to suggest cholecystitis. ADRENAL GLANDS: No significant masses or asymmetry. RIGHT KIDNEY AND URETER: No solid masses. No significant calcifications. No hydronephrosis or hyd roureter. LEFT KIDNEY AND URETER: No solid masses. No significant calcifications. No hydronephrosis or hydr oureter. AORTA AND VESSELS: No aneurysm. RETROPERITONEUM: No retroperitoneal adenopathy, hemorrhage or masses. BOWEL AND PERITONEAL CAVITY: Bowel wall thickening in the cecum and proximal ascending colon. No asc ites or free air. No adenopathy. APPENDIX: Normal. PELVIS: Enlarged fibroid uterus. No pelvic adenopathy. ABDOMINAL WALL: No masses. No hernias. BONES: No acute findings. OTHER: No other significant finding. IMPRESSION: Bowel wall thickening in the cecum could be artifactual due to nondistention. Other pos sibilities include inflammatory, infectious or neoplastic process. TECHNICAL DOCUMENTATION: JOB ID: [id number] Quality ID # [id number]: Final reports with documentation of one or more dose reduction techniques (e.g., Au tomated exposure control, adjustment of the mA and/or kV according to patient size, use of iterative reconstruction technique) 2010 [employer]- All Rights Reserved Reading location - IP/workstation name: [email or web address]
[2018-07-02] MEDS ORDERED: CIPROFLOXACIN HCL 500 MG TABLET PO ONE (11:25)
[2018-07-02] MEDS ORDERED: METRONIDAZOLE 500 MG TABLET PO ONE (11:26)
[2018-07-02] MEDS ORDERED: OXYCODONE-ACETAMINOPHEN 5-325 MG TABLET PO PRN (18:02)
[2018-07-02] MEDS ORDERED: DOFETILIDE 250 MCG PO SCH (18:15)
[2018-07-02] MEDS ORDERED: (PENDING PHARMACY ID) (Pravastatin Sodium [Pravastatin Sodium] 40 MG) PO SCH (18:15)
[2018-07-02] MEDS ORDERED: (PENDING PHARMACY ID) (Umeclidinium Brm/Vilanterol Tr [Anoro Ellipta 62.5-25 Mcg Inh] 1 PU IH SCH (18:15)
[2018-07-02] MEDS ORDERED: 1/2 NORMAL SALINE 1,000 ML IV PRN ×2 (18:18→21:24)
[2018-07-02] MEDS ORDERED: ALBUTEROL SULFATE HFA (90 MCG/PUFF) 200 PUFF/8.5 GM MDI IH PRN (18:45)
[2018-07-02] MEDS: APIXABAN 5 MG TABLET PO SCH (18:54)
[2018-07-02] MEDS: CARVEDILOL 3.125 MG TABLET PO SCH (19:38)
[2018-07-02] MEDS: ASPIRIN 81 MG TABLET, ENT COATED PO SCH (19:39)
[2018-07-02] MEDS: RAMIPRIL 5 MG CAPSULE PO SCH (19:39)
[2018-07-02] MEDS: ONDANSETRON HCL INJ/PF 4 MG/2 ML SDV IV PRN (19:41)
--- NOTE | 2018-07-02 19:54 | EKG REPORT ---
SEVERITY:- ABNORMAL ECG - ATRIAL-VENTRICULAR DUAL-PACED COMPLEXES : Confirmed by: Kylie Gonzalez MD 02-Jul-2018 19:53:46
--- NOTE | 2018-07-02 21:25 | PDOC H&P ---
History of Present Illness Admission Date/PCP: 07/02/18 12:04 MAHOGANY DAVID MD History of Present Illness: ALVIN SHAY is a 62 year old female she has a history of severe cardiomyopathy, COPD, she could emergency room for evaluation of abdominal pain , nausea vomiting diarrhea in the emergency room she was evaluated, CT scan of the abdomen and pelvis with IV contrast was done, it showed bowel wall thickening in the cecum otherwise was negative CT scan the stool was negative for C. difficile toxin, because of the multiple comorbid conditions and because she was having diffuse diarrhea the ED physician felt that patient needed to be admitted for management Past Medical History Cardiac Medical History: Reports: Atrial Fibrillation, Congestive Heart Failure , Coronary Artery Disease, Myocardial Infarction, Hyperlipidema, Hypertension, Heart Murmur Pulmonary Medical History: Reports: Bronchitis, Chronic Obstructive Pulmonary Disease (COPD) Endocrine Medical History: Reports: Hypothyroidism Musculoskeltal Medical History: Reports: Arthritis Hematology: Reports: Anemia Past Surgical History Past Surgical History: Reports: Section, Coronary Artery Bypass Graft - 2008 one-vessel bypass, Pacemaker - Biventricular AICD/pacemaker, Tubal Ligation, Valve Replacement - Mitral valve and tricuspid valve repair Social History Lives with: Spouse/Significant other Smoking Status: Former Smoker Number of Years Smokin Frequency of Alcohol Use: Occasional Hx Recreational Drug Use: No Drugs: None Hx Prescription Drug Abuse: No - Advance Directive Resuscitation Status: Full Code Family History Family History: None Parental Family History Reviewed: Yes Children Family History Reviewed: Yes Sibling(s) Family History Reviewed.: Yes Medication/Allergy Home Medications: Albuterol Sulfate [Proair HFA] 1 - 2 puff IH Q4HP PRN 10/05/17 Apixaban [Eliquis] 5 mg PO BID 10/05/17 Aspirin [Aspirin EC] 81 mg PO DAILY 10/05/17 Carvedilol 3.125 mg PO Q12 10/05/17 Dofetilide 250 mcg PO Q12 10/05/17 Famotidine 20 mg PO BID 10/05/17 Furosemide 80 mg PO DAILY 10/05/17 Gabapentin 100 mg PO Q8 10/05/17 Latanoprost 1 drop OU DAILY 10/05/17 Nitroglycerin 0.4 mg SL PRN PRN 10/05/17 Oxycodone HCl/Acetaminophen [Oxycodone-Acetaminophen 5-325] 1 each PO Q8HP PRN 10/05/17 Pravastatin Sodium 40 mg PO DAILY 10/05/17 Ramipril [Altace] 5 mg PO DAILY 10/05/17 Umeclidinium Brm/Vilanterol Tr [Anoro Ellipta 62.5-25 Mcg INH] 1 puff IH DAILY 07/02/18 Allergies/Adverse Reactions: No Known Allergies Allergy (Verified 10/05/17 09:51) Review of Systems Constitutional: ABSENT: chills, fever(s), headache(s), weight gain, weight loss Eyes: ABSENT: visual disturbances Ears: ABSENT: hearing changes Cardiovascular: ABSENT: chest pain, dyspnea on exertion, edema, orthropnea, palpitations Respiratory: ABSENT: cough, hemoptysis Gastrointestinal: PRESENT: abdominal pain, diarrhea, vomiting Genitourinary: ABSENT: dysuria, hematuria Musculoskeletal: ABSENT: joint swelling Integumentary: ABSENT: rash, wounds Neurological: ABSENT: abnormal gait, abnormal speech, confusion, dizziness, focal weakness, syncope Psychiatric: ABSENT: anxiety, depression, homidical ideation, suicidal ideation Endocrine: ABSENT: cold intolerance, heat intolerance, menstrual abnormalities, polydipsia, polyuria Hematologic/Lymphatic: ABSENT: easy bleeding, easy bruising, lymphadenopathy Physical Exam Vital Signs: Temp Pulse Resp BP Pulse Ox 99.7 F 89 22 H 130/76 H 94 07/02/18 19:20 07/02/18 19:20 07/02/18 19:20 07/02/18 19:20 07/02/18 19:20 Intake & Output 07/01/18 07/02/18 07/03/18 06:59 06:59 06:59 Intake Total 300 Balance 300 General appearance: PRESENT: no acute distress, well-developed, well-nourished Head exam: PRESENT: atraumatic, normocephalic Eye exam: PRESENT: conjunctiva pink, EOMI, PERRLA Ear exam: PRESENT: normal external ear exam Mouth exam: PRESENT: moist, tongue midline Neck exam: PRESENT: full ROM Respiratory exam: PRESENT: clear to auscultation christina Cardiovascular exam: PRESENT: RRR, +S1, +S2 Pulses: PRESENT: normal dorsalis pedis pul, +2 pedal pulses bilateral Vascular exam: PRESENT: normal capillary refill GI/Abdominal exam: PRESENT: normal bowel sounds, soft Rectal exam: PRESENT: deferred Neurological exam: PRESENT: alert, awake, oriented to person, oriented to place , oriented to time, oriented to situation, CN II-XII grossly intact Psychiatric exam: PRESENT: appropriate affect, normal mood Skin exam: PRESENT: dry, intact, warm Results Impressions: Abdomen/Pelvis CT 07/02/18 00:00 IMPRESSION: Bowel wall thickening in the cecum could be artifactual due to nondistention. Other possibilities include inflammatory, infectious or neoplastic process. Chest X-Ray 07/02/18 06:32 IMPRESSION: Pulmonary vascular congestion 2010 [employer]- All Rights Reserved Assessment & Plan - Diagnosis (1) Acute gastroenteritis Is this a current diagnosis for this admission?: Yes Plan: Is most likely viral gastroenteritis, because of multiple comorbid condition, she is admitted for slow hydration (2) Ischemic cardiomyopathy Is this a current diagnosis for this admission?: Yes
[2018-07-02] MEDS: ATORVASTATIN CALCIUM 10 MG TABLET PO SCH (21:40)
[2018-07-02] MEDS: DOFETILIDE 125 MCG CAPSULE PO SCH (21:40)
[2018-07-03] MEDS: CARVEDILOL 3.125 MG TABLET PO SCH ×2 (05:50→17:31)
[2018-07-03] MEDS: ASPIRIN 81 MG TABLET, ENT COATED PO SCH (09:09)
[2018-07-03] MEDS: FAMOTIDINE 20 MG TABLET PO SCH ×2 (09:09→17:29)
[2018-07-03] MEDS: APIXABAN 5 MG TABLET PO SCH ×2 (09:09→17:30)
[2018-07-03] MEDS: DOFETILIDE 125 MCG CAPSULE PO SCH ×2 (09:09→21:07)
[2018-07-03] MEDS: RAMIPRIL 5 MG CAPSULE PO SCH (09:09)
--- NOTE | 2018-07-03 18:32 | PDOC PROGRESS REPORT ---
Subjective Progress Note for:: 07/03/18 Subjective:: Patient was admitted yesterday for the management of diffuse diarrhea, she has multiple comorbid condition, the diarrhea is still loose. The stool negative for C. difficile toxin Reason For Visit: COLITIS Physical Exam Vital Signs: Temp Pulse Resp BP Pulse Ox 99.3 F 70 16 109/55 L 96 07/03/18 15:27 07/03/18 15:27 07/03/18 15:27 07/03/18 15:27 07/03/18 15:27 Intake & Output 07/02/18 07/03/18 07/04/18 06:59 06:59 06:59 Intake Total 300 775 Output Total 150 Balance 150 775 Weight 56.9 kg General appearance: PRESENT: no acute distress Eye exam: PRESENT: PERRLA Respiratory exam: PRESENT: clear to auscultation christina Cardiovascular exam: PRESENT: +S1, +S2 GI/Abdominal exam: PRESENT: soft Neurological exam: PRESENT: alert Results Impressions: Abdomen/Pelvis CT 07/02/18 00:00 IMPRESSION: Bowel wall thickening in the cecum could be artifactual due to nondistention. Other possibilities include inflammatory, infectious or neoplastic process. Chest X-Ray 07/02/18 06:32 IMPRESSION: Pulmonary vascular congestion 2010 [employer]- All Rights Reserved Assessment & Plan - Diagnosis (1) Acute gastroenteritis Is this a current diagnosis for this admission?: Yes Plan: Patient still having diarrhea, continue slow hydration, because of severe cardiomyopathy patient is admitted into the hospital for close monitoring because of the tendency to develop congestive heart failure (2) Ischemic cardiomyopathy Is this a current diagnosis for this admission?: Yes
[2018-07-03 19:18] LABS: ABSOLUTE BASOPHILS # (AUTO) 0.1 10^3/uL (0.0-0.2); ABSOLUTE EOSINOPHILS # (AUTO) 0.5 10^3/uL (0.0-0.6); ABSOLUTE LYMPHOCYTES (AUTO) 1.1 10^3/uL (0.5-4.7); ABSOLUTE MONOCYTES (AUTO) 0.5 10^3/uL (0.1-1.4); ABSOLUTE NEUT (AUTO) 6.9 10^3/uL (1.7-8.2); BASOPHILS % (AUTO) 1.1 % (0-2); EOSINOPHILS % (AUTO) 5.2 % (0-6); HEMATOCRIT 31.3 % (36.0-47.0); HEMOGLOBIN 10.4 g/dL (12.0-15.5); LYMPHOCYTES % (AUTO) 12.5 % (13-45); MEAN CORPUSCULAR HEMOGLOBIN 30.3 pg (27.0-33.4); MEAN CORPUSCULAR HGB CONC 33.4 g/dL (32.0-36.0); MEAN CORPUSCULAR VOLUME 91 fl (80-97); MONOCYTES % (AUTO) 5.6 % (3-13); PLATELET COUNT 210 10^3/uL (150-450); RED BLOOD COUNT 3.44 10^6/uL (3.72-5.28); RED CELL DISTRIBUTION WIDTH 15.3 % (11.5-14.0); SEGMENTED NEUTROPHILS % (AUTO) 75.6 % (42-78); TOTAL CELLS COUNTED % (AUTO) 100 %; WHITE BLOOD COUNT 9.1 10^3/uL (4.0-10.5)
[2018-07-03 19:32] LABS: ALANINE AMINOTRANSFERASE 20 U/L (9-52); ALBUMIN 4.1 g/dL (3.5-5.0); ALKALINE PHOSPHATASE 64 U/L (38-126); ANION GAP 11 (5-19); ASPARTATE AMINO TRANSFERASE 29 U/L (14-36); BILIRUBIN,DIRECT 0.4 mg/dL (0.0-0.4); BILIRUBIN,TOTAL 1.6 mg/dL (0.2-1.3); BLOOD UREA NITROGEN 16 mg/dL (7-20); CALCIUM 9.4 mg/dL (8.4-10.2); CARBON DIOXIDE 21 mmol/L (22-30); CHLORIDE 107 mmol/L (98-107); GLUCOSE 119 mg/dL (75-110); POTASSIUM 4.1 mmol/L (3.6-5.0); SODIUM 138.5 mmol/L (137-145); TOTAL PROTEIN 7.3 g/dL (6.3-8.2)
[2018-07-03] MEDS: GABAPENTIN 100 MG CAPSULE PO SCH (19:40)
[2018-07-03] MEDS: LATANOPROST 0.005% OPH SOLN 2.5 ML OU SCH (21:06)
[2018-07-03] MEDS: ATORVASTATIN CALCIUM 10 MG TABLET PO SCH (21:07)
[2018-07-03] MEDS: ONDANSETRON HCL INJ/PF 4 MG/2 ML SDV IV PRN (21:11)
[2018-07-04 04:24] LABS: ABSOLUTE EOSINOPHILS # (AUTO) 0.5 10^3/uL (0.0-0.6); ABSOLUTE LYMPHOCYTES (AUTO) 1.1 10^3/uL (0.5-4.7); ABSOLUTE MONOCYTES (AUTO) 0.5 10^3/uL (0.1-1.4); ABSOLUTE NEUT (AUTO) 5.8 10^3/uL (1.7-8.2); BASOPHILS % (AUTO) 0.5 % (0-2); EOSINOPHILS % (AUTO) 6.4 % (0-6); HEMATOCRIT 28.3 % (36.0-47.0); HEMOGLOBIN 9.4 g/dL (12.0-15.5); LYMPHOCYTES % (AUTO) 14.1 % (13-45); MEAN CORPUSCULAR HEMOGLOBIN 30.3 pg (27.0-33.4); MEAN CORPUSCULAR HGB CONC 33.3 g/dL (32.0-36.0); MEAN CORPUSCULAR VOLUME 91 fl (80-97); MONOCYTES % (AUTO) 5.9 % (3-13); PLATELET COUNT 180 10^3/uL (150-450); RED BLOOD COUNT 3.11 10^6/uL (3.72-5.28); RED CELL DISTRIBUTION WIDTH 15.2 % (11.5-14.0); SEGMENTED NEUTROPHILS % (AUTO) 73.1 % (42-78); TOTAL CELLS COUNTED % (AUTO) 100 %; WHITE BLOOD COUNT 7.9 10^3/uL (4.0-10.5)
[2018-07-04 04:42] LABS: ALANINE AMINOTRANSFERASE 24 U/L (9-52); ALBUMIN 3.5 g/dL (3.5-5.0); ALKALINE PHOSPHATASE 68 U/L (38-126); ANION GAP 6 (5-19); ASPARTATE AMINO TRANSFERASE 24 U/L (14-36); BILIRUBIN,DIRECT 0.3 mg/dL (0.0-0.4); BILIRUBIN,TOTAL 1.2 mg/dL (0.2-1.3); BLOOD UREA NITROGEN 13 mg/dL (7-20); CALCIUM 9.1 mg/dL (8.4-10.2); CARBON DIOXIDE 22 mmol/L (22-30); CHLORIDE 109 mmol/L (98-107); GLUCOSE 105 mg/dL (75-110); POTASSIUM 3.8 mmol/L (3.6-5.0); SODIUM 136.9 mmol/L (137-145); TOTAL PROTEIN 6.4 g/dL (6.3-8.2)
[2018-07-04] MEDS: GABAPENTIN 100 MG CAPSULE PO SCH ×3 (06:03→22:01)
[2018-07-04] MEDS: CARVEDILOL 3.125 MG TABLET PO SCH ×2 (06:03→17:21)
[2018-07-04] MEDS: RAMIPRIL 5 MG CAPSULE PO SCH (09:26)
[2018-07-04] MEDS: FAMOTIDINE 20 MG TABLET PO SCH ×2 (09:26→17:21)
[2018-07-04] MEDS: APIXABAN 5 MG TABLET PO SCH ×2 (09:27→17:21)
[2018-07-04] MEDS: LATANOPROST 0.005% OPH SOLN 2.5 ML OU SCH (09:27)
[2018-07-04] MEDS: DOFETILIDE 125 MCG CAPSULE PO SCH ×2 (09:27→22:01)
[2018-07-04] MEDS: ASPIRIN 81 MG TABLET, ENT COATED PO SCH (09:27)
--- NOTE | 2018-07-04 15:22 | Physician Advisory Note ---
Physician Advisor ProgressNote .: [facility] to the [facility], I have reviewed the medical record for this patient. Physician Advisor Statement: Very nice documentation of medical necessity - why pt still needs to be in hospital, why IVF are cautious. Please consider documenting, if you agree: 1. "chronic systolic & diastolic CHF w/EF 35-40%, mod-severe MR & pulmonary hypertension" Thanks! CK
--- NOTE | 2018-07-04 20:43 | PDOC PROGRESS REPORT ---
Subjective Progress Note for:: 07/04/18 Subjective:: Patient was seen by the bedside the diarrhea is now formed, she could be discharged home safely tomorrow Reason For Visit: COLITIS Physical Exam Vital Signs: Temp Pulse Resp BP Pulse Ox 97.3 F 70 16 125/63 100 07/04/18 15:51 07/04/18 15:51 07/04/18 15:51 07/04/18 15:51 07/04/18 15:51 Intake & Output 07/03/18 07/04/18 07/05/18 06:59 06:59 06:59 Intake Total 300 1219 873 Output Total 150 800 Balance 150 1219 73 Weight 56.9 kg 59.4 kg General appearance: PRESENT: no acute distress Eye exam: PRESENT: PERRLA Respiratory exam: PRESENT: clear to auscultation christina Cardiovascular exam: PRESENT: +S1, +S2 GI/Abdominal exam: PRESENT: soft Neurological exam: PRESENT: alert Results Laboratory Results: 07/04/18 03:49 07/04/18 03:49 07/04/18 07/04/18 03:49 03:49 WBC 7.9 RBC 3.11 L Hgb 9.4 L Hct 28.3 L MCV 91 MCH 30.3 MCHC 33.3 RDW 15.2 H Plt Count 180 Seg Neutrophils % 73.1 Lymphocytes % 14.1 Monocytes % 5.9 Eosinophils % 6.4 H Basophils % 0.5 Absolute Neutrophils 5.8 Absolute Lymphocytes 1.1 Absolute Monocytes 0.5 Absolute Eosinophils 0.5 Absolute Basophils 0.0 Sodium 136.9 L Potassium 3.8 Chloride 109 H Carbon Dioxide 22 Anion Gap 6 BUN 13 Creatinine 0.80 Est GFR ( Amer) > 60 Est GFR (Non-Af Amer) > 60 Glucose 105 Calcium 9.1 Total Bilirubin 1.2 AST 24 ALT 24 Alkaline Phosphatase 68 Total Protein 6.4 Albumin 3.5 Impressions: Abdomen/Pelvis CT 07/02/18 00:00 IMPRESSION: Bowel wall thickening in the cecum could be artifactual due to nondistention. Other possibilities include inflammatory, infectious or neoplastic process. Chest X-Ray 07/02/18 06:32 IMPRESSION: Pulmonary vascular congestion 2010 [employer]- All Rights Reserved Assessment & Plan - Diagnosis (1) Acute gastroenteritis Is this a current diagnosis for this admission?: Yes (2) Ischemic cardiomyopathy Is this a current diagnosis for this admission?: Yes (3) Chronic combined systolic and diastolic CHF (congestive heart failure) Is this a current diagnosis for this admission?: Yes (4) Presence of biventricular AICD Is this a current diagnosis for this admission?: Yes
--- NOTE | 2018-07-04 20:50 | PDOC DISCHARGE SUMMARY ---
General - Admit/Disc Date/PCP Admission Date/Primary Care Provider: 07/02/18 12:04 MAHOGANY DAVID MD Discharge Date: 07/05/18 - Discharge Diagnosis (1) Acute gastroenteritis Is this a current diagnosis for this admission?: Yes (2) Ischemic cardiomyopathy Is this a current diagnosis for this admission?: Yes (3) Chronic combined systolic and diastolic CHF (congestive heart failure) Is this a current diagnosis for this admission?: Yes (4) Presence of biventricular AICD Is this a current diagnosis for this admission?: Yes - Additional Information Resuscitation Status: Full Code Home Medications: Albuterol Sulfate [Proair HFA] 1 - 2 puff IH Q4HP PRN 10/05/17 Apixaban [Eliquis] 5 mg PO BID 10/05/17 Aspirin [Aspirin EC] 81 mg PO DAILY 10/05/17 Carvedilol 3.125 mg PO Q12 10/05/17 Dofetilide 250 mcg PO Q12 10/05/17 Famotidine 20 mg PO BID 10/05/17 Furosemide 80 mg PO DAILY 10/05/17 Gabapentin 100 mg PO Q8 10/05/17 Latanoprost 1 drop OU DAILY 10/05/17 Nitroglycerin 0.4 mg SL PRN PRN 10/05/17 Oxycodone HCl/Acetaminophen [Oxycodone-Acetaminophen 5-325] 1 each PO Q8HP PRN 10/05/17 Pravastatin Sodium 40 mg PO DAILY 10/05/17 Ramipril [Altace] 5 mg PO DAILY 10/05/17 Umeclidinium Brm/Vilanterol Tr [Anoro Ellipta 62.5-25 Mcg INH] 1 puff IH DAILY 07/02/18 History of Present Illness History of Present Illness: ALVIN SHAY is a 62 year old female she has a history of severe cardiomyopathy, COPD, she could emergency room for evaluation of abdominal pain , nausea vomiting diarrhea in the emergency room she was evaluated, CT scan of the abdomen and pelvis with IV contrast was done, it showed bowel wall thickening in the cecum otherwise was negative CT scan the stool was negative for C. difficile toxin, because of the multiple comorbid conditions and because she was having diffuse diarrhea the ED physician felt that patient needed to be admitted for management Hospital Course Hospital Course: She has a history of chronic systolic and diastolic heart failure, she was admitted for the management of profuse diarrhea and vomiting, most likely due to viral infection because of the chronic systolic heart failure she was admitted for slow hydration, she was treated with half-normal saline the stool was negative for C. difficile toxin.The stool was negative for C. difficile toxin, infection was negative Physical Exam Vital Signs: Temp Pulse Resp BP Pulse Ox 97.3 F 70 16 125/63 100 07/04/18 15:51 07/04/18 15:51 07/04/18 15:51 07/04/18 15:51 07/04/18 15:51 Intake & Output 07/03/18 07/04/18 07/05/18 06:59 06:59 06:59 Intake Total 300 1219 873 Output Total 150 800 Balance 150 1219 73 Weight 56.9 kg 59.4 kg General appearance: PRESENT: no acute distress Head exam: PRESENT: atraumatic, normocephalic Eye exam: PRESENT: PERRLA Ear exam: PRESENT: normal external ear exam Neck exam: PRESENT: full ROM Respiratory exam: PRESENT: clear to auscultation christina Cardiovascular exam: PRESENT: RRR, +S1, +S2 Pulses: PRESENT: normal dorsalis pedis pul, +2 pedal pulses bilateral Vascular exam: PRESENT: normal capillary refill GI/Abdominal exam: PRESENT: normal bowel sounds, soft Rectal exam: PRESENT: deferred Neurological exam: PRESENT: alert Psychiatric exam: PRESENT: appropriate affect, normal mood Skin exam: PRESENT: dry, intact, warm Results Laboratory Results: 07/04/18 03:49 07/04/18 03:49 07/04/18 07/04/18 03:49 03:49 WBC 7.9 RBC 3.11 L Hgb 9.4 L Hct 28.3 L MCV 91 MCH 30.3 MCHC 33.3 RDW 15.2 H Plt Count 180 Seg Neutrophils % 73.1 Lymphocytes % 14.1 Monocytes % 5.9 Eosinophils % 6.4 H Basophils % 0.5 Absolute Neutrophils 5.8 Absolute Lymphocytes 1.1 Absolute Monocytes 0.5 Absolute Eosinophils 0.5 Absolute Basophils 0.0 Sodium 136.9 L Potassium 3.8 Chloride 109 H Carbon Dioxide 22 Anion Gap 6 BUN 13 Creatinine 0.80 Est GFR ( Amer) > 60 Est GFR (Non-Af Amer) > 60 Glucose 105 Calcium 9.1 Total Bilirubin 1.2 AST 24 ALT 24 Alkaline Phosphatase 68 Total Protein 6.4 Albumin 3.5 Impressions: Abdomen/Pelvis CT 07/02/18 00:00 IMPRESSION: Bowel wall thickening in the cecum could be artifactual due to nondistention. Other possibilities include inflammatory, infectious or neoplastic process. Chest X-Ray 07/02/18 06:32 IMPRESSION: Pulmonary vascular congestion 2010 [employer]- All Rights Reserved Qualifiers - * PATIENT BEING DISCHARGED WITH ANY OF THE FOLLOWING DIAGNOSIS: No
[2018-07-04] MEDS: ATORVASTATIN CALCIUM 10 MG TABLET PO SCH (22:01)
[2018-07-05] MEDS: GABAPENTIN 100 MG CAPSULE PO SCH (05:27)
[2018-07-05] MEDS: CARVEDILOL 3.125 MG TABLET PO SCH (05:27)
[2018-07-05] MEDS: ASPIRIN 81 MG TABLET, ENT COATED PO SCH (09:06)
[2018-07-05] MEDS: FAMOTIDINE 20 MG TABLET PO SCH (09:06)
[2018-07-05] MEDS: LATANOPROST 0.005% OPH SOLN 2.5 ML OU SCH (09:06)
[2018-07-05] MEDS: DOFETILIDE 125 MCG CAPSULE PO SCH (09:06)
[2018-07-05] MEDS: RAMIPRIL 5 MG CAPSULE PO SCH (09:06)
[2018-07-05] MEDS: APIXABAN 5 MG TABLET PO SCH (09:06)
[2018-07-05 10:26] VITALS: BP 131/73
== END 2018-07-05 10:50 | disposition home or self-care (01) | DRG 392 ==
LOC: ER 04:20 → EH 12:04 → 3W 14:05
PROVIDERS: ADMIT Internal Medicine; ATTEND Internal Medicine
DX: K52.9 Noninfective gastroenteritis and colitis, unspecified (principal); I50.42 Chronic combined systolic (congestive) and diastolic (congestive) heart failure; J44.9 Chronic obstructive pulmonary disease, unspecified; I48.91 Unspecified atrial fibrillation; I50.9 Heart failure, unspecified; I25.5 Ischemic cardiomyopathy; I11.0 Hypertensive heart disease with heart failure; I25.10 Atherosclerotic heart disease of native coronary artery without angina pectoris; I25.2 Old myocardial infarction; E78.5 Hyperlipidemia, unspecified; E03.9 Hypothyroidism, unspecified; M19.90 Unspecified osteoarthritis, unspecified site; D64.9 Anemia, unspecified; Z95.1 Presence of aortocoronary bypass graft; Z95.810 Presence of automatic (implantable) cardiac defibrillator; Z87.891 Personal history of nicotine dependence; Z98.51 Tubal ligation status; Z79.82 Long term (current) use of aspirin; Z79.899 Other long term (current) drug therapy
CPT/HCPCS: 36415; 71045; 74177; 80053; 81001; 83690; 84484; 85025; 87045; 87205; 87493; 93005; 93010; 96361; 96372; 96374; 96375; 99285; J2405; J2550; J3010; J3490; J7040

== ENCOUNTER → 2018-08-27 | Outpatient (CLI) | payer MEDICARE, MEDICAID ==
--- NOTE | 2018-08-27 15:45 | WOMENS IMAGING REPORT ---
EXAM DESCRIPTION: 3D SCREENING MAMMO BILAT COMPLETED DATE/TIME: 08/27/2018 2:55 pm REASON FOR STUDY: BILATERAL SCREENING MAMMO 3D/Z12.31 Z12.31 ENCNTR SCREEN MAMMOGRAM FOR MALIGNANT NEOPLASM OF [place]ANTELLE COMPARISON: Multiple since 2011 TECHNIQUE: Standard craniocaudal and mediolateral oblique views of each breast recorded using digita l acquisition and breast tomosynthesis. LIMITATIONS: None. FINDINGS: No masses, calcifications or architectural distortion. No areas of suspicion. Read with the assistance of CAD. .[facility] - R2 Cenova Version 1.3 .[facility] - R2 Cenova Version 1.3 .[facility] - R2 Cenova Version 2.4 .[facility] - R2 Cenova Version 2.4 .[facility] - R2 Research Administrator Version 9.2 IMPRESSION: NORMAL MAMMOGRAM. BIRADS 1. BREAST DENSITY: c. The breasts are heterogeneously dense, which may obscure small masses. BIRAD: 1 NEGATIVE RECOMMENDATION: ROUTINE SCREENING Please continue yearly bilateral screening mammography/tomosynthesis in July 2019 COMMENT: The patient has been notified of the results by letter per SA requirements. Additional no tification policies are in place for contacting patient with suspicious or incomplete findings. Quality ID #[id number]: The [employer] recommends an annual screening mammogram for women aged 40 years or over. This facility utilizes a reminder system to ensure that all patients receive reminder letters, and/or direct phone calls for appointments. This includes reminders for routine scr eening mammograms, diagnostic mammograms, or other Breast Imaging Interventions when appropriate. Th is patient will be placed in the appropriate reminder system. The [employer] (ACR) has developed recommendations for screening MRI of the breast s in certain patient populations, to be used in conjunction with mammography. Breast MRI surveillanc e may be appropriate for women with more than 20% lifetime risk of developing breast cancer as deter mined by genetic testing, significant family history of the disease, or history of mantle radiation f or Hodgkins Disease. ACR Practice Guidelines 2008. DBT Technology DBT is a type of tomographic mammography. With conventional mammography, overlapping breast tissue ma y make lesions difficult to detect, even with good compression. DBT uses an x-ray tube that rotates a round the breast, taking images at different angles. These images are then combined to create thin sl ices of the breast that the radiologist can view as a 3D reconstruction. The Gabstr unit can perform full-field digital mammograms (2D imaging); or DBT (3D imaging); or both, in a combination mode that quickly performs both the mammogram and the tomosynthesis scan while the breast is still compressed. PQRS 6045F: Fluoroscopic imaging is not utilized for breast tomosynthesis. TECHNICAL DOCUMENTATION: FINDING NUMBER: (1) ASSESSMENT: (1) JOB ID: [id number] [employer]- All Rights Reserved Reading location - IP/workstation name: [email or web address]
== END ==
LOC: WI 14:29
PROVIDERS: ATTEND Internal Medicine
DX: Z12.31 Encounter for screening mammogram for malignant neoplasm of breast (principal)
CPT/HCPCS: 77063; 77067

== ENCOUNTER 2019-09-11 12:40 | Inpatient (IN) | payer MEDICARE, MEDICAID ==
--- NOTE | 2019-09-11 12:51 | ER Document Report ---
ED General - General Chief Complaint: Shortness Of Breath Stated Complaint: SHORTNESS OF BREATH Time Seen by Provider: 09/11/19 12:49 TRAVEL OUTSIDE OF THE [place] IN LAST 30 DAYS: No - HPI Notes: 63-year-old female to the emergency department with via EMS with complaints of shortness of breath and cough that is been getting progressively worse for the past several days. Patient states that she feels awful and that she has also been experiencing nausea and vomiting as well as generalized abdomi nal pain and fevers. She is not exactly sure how high the fever has been. She did get a flu shot this season. She does have a history of 2 valve replacementsshe believes aortic and mitral valve in 2017 at [facility]. She states that she smokes occasionally. She admits that she has been having some chest pain with coughing but denies any chest pain today. She has a defibrillator which she denies that it is gone off since her illness started. Her primary care physician is Dr. Hart. She denies any leg swelling or history of heart failure, although in her past medical history there is history of congestive heart failure and COPD. - Related Data Allergies/Adverse Reactions: No Known Allergies Allergy (Verified 10/05/17 09:51) Home Medications: eliquis Past Medical History - General Information source: Patient, Relative - Social History Smoking Status: Current Every Day Smoker Frequency of alcohol use: None Drug Abuse: None Lives with: Spouse/Significant other Family History: Reviewed & Not Pertinent Patient has suicidal ideation: No Patient has homicidal ideation: No - Past Medical History Cardiac Medical History: Reports: Hx Atrial Fibrillation, Hx Congestive Heart Failure, Hx Coronary Artery Disease, Hx Heart Attack, Hx Hypercholesterolemia, Hx Hypertension, Hx Heart Murmur Pulmonary Medical History: Reports: Hx Bronchitis, Hx COPD Denies: Hx Tuberculosis Endocrine Medical History: Reports: Hx Hypothyroidism Renal/ Medical History: Denies: Hx Peritoneal Dialysis Musculoskeletal Medical History: Reports Hx Arthritis Skin Medical History: Denies Hx MRSA Psychiatric Medical History: Denies: Hx Depression Past Surgical History: Reports: Hx Breast Surgery - bilat cysts, Hx Cardiac Surgery - CABG; defib, Hx Section, Hx Coronary Artery Bypass Graft - 2009 one-vessel bypass, Hx Pacemaker - Biventricular AICD/pacemaker, Hx Tubal Ligation, Hx Valve Replacement - Mitral valve and tricuspid valve repair - Immunizations Immunizations up to date: Yes Hx Diphtheria, Pertussis, Tetanus Vaccination: Yes Hx Pneumococcal Vaccination: 09/24/13 Review of Systems - Review of Systems Constitutional: Chills, Fever, Malaise, Weakness EENT: Nose congestion, Nose discharge Cardiovascular: Chest pain. denies: Palpitations, Orthopnea, Dyspnea, Syncope, Dizziness, Lightheaded Respiratory: Cough, Short of breath, Wheezing Gastrointestinal: Abdominal pain, Nausea, Vomiting. denies: Diarrhea Genitourinary: No symptoms reported Female Genitourinary: No symptoms reported Musculoskeletal: No symptoms reported Skin: No symptoms reported Hematologic/Lymphatic: No symptoms reported Neurological/Psychological: No symptoms reported -: Yes All other systems reviewed and negative Physical Exam - Vital signs Vitals: Temp 99 F 09/11/19 12:40 Notes: When evaluating patient, noted that her skin felt febrile -- remeasured her temperature -- oral of 100.7, notified SINCERE Lyons. - General General appearance: Appears well, Alert - HEENT Head: Normocephalic, Atraumatic Eyes: Normal Pupils: PERRL Ears: Normal External canal: Normal Tympanic membrane: Normal Sinus: Normal Nasal: Normal Mouth/Lips: Normal Mucous membranes: Dry Pharynx: Normal. No: Potential airway comprom. Neck: Normal, Supple. No: Meningismus - Respiratory Respiratory status: No respiratory distress Chest status: Nontender. No: Accessory muscle use Breath sounds: Decreased air movement, Rhonchi, Wheezing - expiratory wheezing particularly at the bilateral lung bases. + rhonchi throughout. + hacking cough, decreased air movement throughout. No: Rales, Stridor Chest palpation: Normal - Cardiovascular Rhythm: Regular Heart sounds: Normal auscultation Murmur: No Notes: no pedal edema - Abdominal Inspection: Normal Distension: No distension Bowel sounds: Normal Tenderness: Nontender Organomegaly: No organomegaly - Back Back: Normal. 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 No: Pronator drift Sensory: Normal - Psychological Associated symptoms: Normal affect, Normal mood - Skin Skin Temperature: Warm Skin Moisture: Dry Skin Color: Normal Course - Re-evaluation Re-evalutation: Discussed the patient with Dr. Perry, ER attending. We discussed her lab fin dings, radiology results. We also discussed her clinical exam. Patient does not look well on clinical exam. She states she feels better after breathing treatments but she is drowsy and states that she feels overall pretty badly. Discussed with Dr. Perry for possible admission and he agrees with plan to admit her. He is aware that I have given her Rocephin and given her a small bolus of fluid. I have only given her 500 mL. She sounds more like she has a respiratory illness and not CHF. I discussed patient with Dr. Hart, her primary care physician. We discussed the CTA and chest x-ray findings. We discussed the troponin and the BNP level. We discussed clinical exam findings. He would like for her to be admitted to the [facility]. Did advise that I only gave 500 mL of fluids and that on exam she looks dry despite her BNP and her vascular congestion reading on chest x-ray. Inquired if he wanted me to give her any other further medications and he did not advise any further medications at this time. 09/11/19 18:35 discussed upgoing troponin with Dr. Becerra. patient remains chest pain free-- again states that her SOB is improved since getting breathing Treatment. He agrees with plan to give patient aspirin and repeat EKG. He is aware that the patient has been admitted to Dr. Hart's service for further evaluation and management to the [facility]. Impression: Shortness of breath, fever, cough, elevated troponin. Patient will be admitted to the IMCU. She is currently chest pain-free. She feels better after breathing treatments. She has been given 500 cc of normal saline as well as 125 of Medrol, 1 g of Rocephin, DuoNeb. She is also been given 324 mg of aspirin. - Vital Signs Vital signs: Temp Pulse Resp BP Pulse Ox 97.7 F 22 H 106/52 L 98 09/11/19 19:21 09/11/19 19:01 09/11/19 19:01 09/11/19 19:01 - Laboratory Result Diagrams: 09/11/19 12:53 09/11/19 12:53 Laboratory results interpreted by me: 09/11/19 09/11/19 09/11/19 12:53 12:53 12:53 RBC 3.30 L Hgb 10.0 L Hct 29.5 L Lymph % (Auto) 6.4 L [place] % (Auto) 13.1 H Absolute Lymphs (auto) 0.3 L Seg Neutrophils % 80.0 H BUN 21 H Est GFR (MDRD) Non-Af 53 L Glucose 121 H Total Bilirubin 1.8 H NT-Pro-B Natriuret Pep 01638 H - Diagnostic Test Radiology reviewed: Image reviewed, Reports reviewed - EKG Interpretation by Me EKG shows normal: Sinus rhythm Additional EKG results interpreted by me: 09/11/19 13:30 AV dual paced rhythm. NO STEMI. No significant changes from prior on 8. Discharge - Discharge Clinical Impression: Shortness of breath, Cough CHF (congestive heart failure) Qualifiers: Heart failure type: unspecified Heart failure chronicity: unspecified Qualified Code(s): I50.9 - Heart failure, unspecified Fever Qualifiers: Fever type: unspecified Qualified Code(s): R50.9 - Fever, unspecified Condition: Stable Disposition: ADMITTED INPATIENT Admitting Provider: [facility] Admitted: [facility]
[2019-09-11 13:10] LABS: ABSOLUTE LYMPHOCYTES (AUTO) 0.3 10^3/uL (0.5-4.7); ABSOLUTE MONOCYTES (AUTO) 0.7 10^3/uL (0.1-1.4); ABSOLUTE NEUT (AUTO) 4.1 10^3/uL (1.7-8.2); BASOPHILS % (AUTO) 0.5 % (0-2); HEMATOCRIT 29.5 % (36.0-47.0); LYMPHOCYTES % (AUTO) 6.4 % (13-45); MEAN CORPUSCULAR HEMOGLOBIN 30.2 pg (27.0-33.4); MEAN CORPUSCULAR HGB CONC 33.8 g/dL (32.0-36.0); MEAN CORPUSCULAR VOLUME 89 fl (80-97); MONOCYTES % (AUTO) 13.1 % (3-13); PLATELET COUNT 178 10^3/uL (150-450); TOTAL CELLS COUNTED % (AUTO) 100 %; WHITE BLOOD COUNT 5.1 10^3/uL (4.0-10.5)
[2019-09-11] MEDS ORDERED: ACETAMINOPHEN 325 MG TABLET PO ONE (13:19)
[2019-09-11] MEDS ORDERED: IPRATROPIUM/ALBUTEROL 0.5-2.5 MG/3 ML AMPUL NEB ONE (13:19)
[2019-09-11] MEDS ORDERED: METHYLPREDNISOLONE INJ 125 MG/2 ML SDV IV ONE (13:19)
[2019-09-11 13:21] LABS: A TYPE INFLUENZA AG NEGATIVE (NEGATIVE); ALBUMIN 4.3 g/dL (3.5-5.0); ALKALINE PHOSPHATASE 82 U/L (38-126); ANION GAP 12 (5-19); ASPARTATE AMINO TRANSFERASE 30 U/L (14-36); B INFLUENZA AG NEGATIVE (NEGATIVE); BILIRUBIN,DIRECT 0.3 mg/dL (0.0-0.4); BILIRUBIN,TOTAL 1.8 mg/dL (0.2-1.3); BLOOD UREA NITROGEN 21 mg/dL (7-20); CALCIUM 9.4 mg/dL (8.4-10.2); CARBON DIOXIDE 27 mmol/L (22-30); CHLORIDE 103 mmol/L (98-107); GLUCOSE 121 mg/dL (75-110); POTASSIUM 4.1 mmol/L (3.6-5.0); TOTAL PROTEIN 7.7 g/dL (6.3-8.2)
[2019-09-11] MEDS ORDERED: ONDANSETRON HCL INJ/PF 4 MG/2 ML SDV IV ONE (13:26)
[2019-09-11 13:36] LABS: TROPONIN I 0.07 ng/mL
[2019-09-11] MEDS: CEFTRIAXONE 1 GM/D5W RTU 1 GM/50 ML RTUPB IV SCH (13:38)
[2019-09-11] MEDS: NORMAL SALINE 1000 ML 1,000 ML IV PRN ×2 (13:39→13:40)
--- NOTE | 2019-09-11 13:53 | RADIOLOGY REPORT (SQ) ---
EXAM DESCRIPTION: CHEST SINGLE VIEW COMPLETED DATE/TIME: 09/11/2019 1:35 pm REASON FOR STUDY: sob COMPARISON: 10/05/2017 NUMBER OF VIEWS: One view. TECHNIQUE: Single frontal radiographic view of the chest acquired. LIMITATIONS: None. FINDINGS: LUNGS AND PLEURA: No opacities, masses or pneumothorax. No pleural effusion. MEDIASTINUM AND HILAR STRUCTURES: Stable. HEART AND VASCULATURE: Cardiac enlargement. Vascular congestion. BONES: No acute findings. HARDWARE: CABG. Defibrillator. OTHER: No other significant finding. IMPRESSION: CARDIAC ENLARGEMENT. VASCULAR CONGESTION. TECHNICAL DOCUMENTATION: JOB ID: [id number] [employer]- All Rights Reserved Reading location - IP/workstation name: [email or web address]
--- NOTE | 2019-09-11 15:15 | RADIOLOGY REPORT (SQ) ---
EXAM DESCRIPTION: CTA CHEST COMPLETED DATE/TIME: 09/11/2019 3:00 pm REASON FOR STUDY: SOB COMPARISON: 03/02/2015 TECHNIQUE: CT scan of the chest performed using helical scanning technique with dynamic intravenous contrast injection. Images reviewed with lung, soft tissue and bone windows. Reconstructed coronal and sagittal MPR images reviewed. Additional 3 dimensional post-processing performed to develop Maximal Intensity Projection images (TX P). All images stored on PACS. All CT scanners at this facility use dose modulation, iterative reconstruction, and/or weight based d osing when appropriate to reduce radiation dose to as low as reasonably achievable (ALARA). [facility]: Dose Right [facility]: CareDose [facility]: Dose Right [facility]: Teradose 4D [facility]: [employer] CONTRAST TYPE AND DOSE: contrast/concentration: Isovue 350.00 mg/ml; Total Contrast Delivered: 51.0 ml; Total Saline Delivered: 70.0 ml Contrast bolus optimized for the pulmonary arteries. Not diagnostic for the aorta. RENAL FUNCTION: GFR > 60. RADIATION DOSE: CT Rad equipment meets quality standard of care and radiation dose reduction techniq ues were employed. CTDIvol: 13.2 - 14.3 mGy. DLP: 501 mGy-cm. . LIMITATIONS: None. FINDINGS: LUNGS AND PLEURA: No masses, infiltrates, or pneumothorax. No pleural effusions or pleura l calcifications. AORTA AND GREAT VESSELS: No aneurysm. Contrast bolus not optimized for the aorta. HEART: No pericardial effusion. Gross cardiomegaly. Mitral and tricuspid valve annular prostheses. Left chest multi lead pacer defibrillator. Coronary artery calcifications and/or stents. PULMONARY ARTERIES: No emboli visualized in the main pulmonary arteries or the segmental branches. HILAR AND MEDIASTINAL STRUCTURES: No identified masses or abnormal nodes. HARDWARE: None in the chest. UPPER ABDOMEN: No significant findings. Limited exam. THYROID AND OTHER SOFT TISSUES: No masses. No adenopathy. BONES: No acute or significant finding. 3D MIPS: Confirm above findings. OTHER: No other significant finding. IMPRESSION: 1. Negative examination for pulmonary embolism. 2. Gross cardiomegaly. COMMENT: Quality ID # [id number]: Final reports with documentation of one or more dose reduction techniques (e.g., Automated exposure control, adjustment of the mA and/or kV according to patient size, use of iterative reconstruction technique) TECHNICAL DOCUMENTATION: JOB ID: [id number]- All Rights Reserved Reading location - IP/workstation name: [email or web address]
[2019-09-11] MEDS ORDERED: ALBUTEROL SULFATE HFA (90 MCG/PUFF) 200 PUFF/8.5 GM MDI IH PRN (20:32)
[2019-09-11] MEDS ORDERED: (PENDING PHARMACY ID) (Dofetilide [Tikosyn] 250 MCG) PO SCH (20:45)
[2019-09-11] MEDS: ASPIRIN 81 MG TABLET, ENT COATED PO SCH (21:43)
[2019-09-11] MEDS: APIXABAN 5 MG TABLET PO SCH (21:43)
[2019-09-11] MEDS: CARVEDILOL 6.25 MG TABLET PO SCH (21:43)
[2019-09-11] MEDS: FAMOTIDINE 20 MG TABLET PO SCH (21:43)
[2019-09-11] MEDS: ATORVASTATIN CALCIUM 10 MG TABLET PO SCH (21:43)
[2019-09-11] MEDS: LATANOPROST 0.005% OPH SOLN 2.5 ML OU SCH (21:43)
[2019-09-11] MEDS: DOFETILIDE 125 MCG CAPSULE PO SCH (21:44)
[2019-09-11] MEDS ORDERED: (PENDING PHARMACY ID) (Pravastatin Sodium [Pravachol] 40 MG) PO SCH (22:00)
--- NOTE | 2019-09-11 22:02 | PDOC H&P ---
History of Present Illness Admission Date/PCP: 09/11/19 17:19 RONN GARCÍA MD History of Present Illness: ALVIN SHAY is a 63 year old female, She has multiple comorbid conditions including chronic, she, status post AICD pacemaker implantation, chronic obstructive pulmonary disease, she was brought to the emergency room by spouse for evaluation of shortness of breath and excessive somnolence, she was extensively evaluated in the emergency room, she had CT angiogram of the chest done in the emergency room this was negative for any acute pathology the only significant finding was elevated BNP but she has underlining chronic Systolic and diastolic heart failureThe arterial blood gas on room air, pH is 7.4, PO2 58.2 PCO2 44.1, bicarbonate 27.2 Past Medical History Cardiac Medical History: Reports: Atrial Fibrillation, Congestive Heart Failure, Coronary Artery Disease, Myocardial Infarction, Hyperlipidema, Hypertension, Heart Murmur Pulmonary Medical History: Reports: Bronchitis, Chronic Obstructive Pulmonary Disease (COPD) Endocrine Medical History: Reports: Hypothyroidism Musculoskeltal Medical History: Reports: Arthritis Hematology: Reports: Anemia Past Surgical History Past Surgical History: Reports: Section, Coronary Artery Bypass Graft - 2008 one-vessel bypass, Pacemaker - Biventricular AICD/pacemaker, Tubal Ligation, Valve Replacement - Mitral valve and tricuspid valve repair Social History Lives with: Spouse/Significant other Smoking Status: Current Every Day Smoker Frequency of Alcohol Use: Occasional Hx Recreational Drug Use: No Drugs: None Hx Prescription Drug Abuse: No Family History Family History: Reviewed & Not Pertinent Parental Family History Reviewed: Yes Children Family History Reviewed: Yes Sibling(s) Family History Reviewed.: Yes Medication/Allergy Home Medications: Albuterol Sulfate [Proair HFA Inhalation Aerosol 8.5 gm MDI] 2 puff IH Q6HP PRN 09/11/19 Apixaban [Eliquis 5 mg Tablet] 5 mg PO BID 09/11/19 Aspirin [Ecotrin 81 mg EC Tablet] 81 mg PO DAILY 09/11/19 Carvedilol [Coreg 6.25 mg Tablet] 6.25 mg PO Q12 09/11/19 Dofetilide [Tikosyn] 250 mcg PO BID 09/11/19 Famotidine [Pepcid 20 mg Tablet] 20 mg PO BID 09/11/19 Furosemide [Lasix 80 mg Tablet] 80 mg PO DAILY 09/11/19 Gabapentin [Neurontin 100 mg Capsule] 100 mg PO Q8 09/11/19 Latanoprost [Xalatan 0.005% Oph Soln 2.5 ml] 1 drop OU QHS 09/11/19 Nitroglycerin [Nitrostat 0.4 mg (1/150 Gr) Tabs 25/Bottle] 0.4 mg SL Q5MP PRN 09/11/19 Oxycodone HCl/Acetaminophen [Percocet 5-325 mg Tablet] 1 tab PO Q4HP PRN 09/11/19 Pravastatin Sodium [Pravachol] 40 mg PO QHS 09/11/19 Ramipril [Altace 5 mg Capsule] 5 mg PO DAILY 09/11/19 Allergies/Adverse Reactions: No Known Allergies Allergy (Verified 10/05/17 09:51) Review of Systems ROS unobtainable: Due to mental status Physical Exam Vital Signs: Temp Pulse Resp BP Pulse Ox 97.7 F 22 H 106/52 L 98 09/11/19 19:21 09/11/19 19:01 09/11/19 19:01 09/11/19 19:01 Intake & Output 09/10/19 09/11/19 09/12/19 06:59 06:59 06:59 Intake Total 1067 Balance 1067 Weight 59 kg General appearance: PRESENT: no acute distress Head exam: PRESENT: atraumatic, normocephalic Eye exam: PRESENT: PERRLA. ABSENT: scleral icterus Neck exam: PRESENT: full ROM Respiratory exam: PRESENT: crackles Cardiovascular exam: PRESENT: RRR, +S1, +S2, systolic murmur Vascular exam: PRESENT: normal capillary refill GI/Abdominal exam: PRESENT: normal bowel sounds, soft Rectal exam: PRESENT: deferred Neurological exam: PRESENT: alert Psychiatric exam: PRESENT: appropriate affect, normal mood Skin exam: PRESENT: dry, intact, warm Results Laboratory Results: 09/11/19 12:53 09/11/19 12:53 09/11/19 09/11/19 12:53 12:53 WBC 5.1 RBC 3.30 L Hgb 10.0 L Hct 29.5 L MCV 89 MCH 30.2 MCHC 33.8 RDW 14.0 Plt Count 178 Seg Neutrophils % 80.0 H Sodium 141.5 Potassium 4.1 Chloride 103 Carbon Dioxide 27 Anion Gap 12 BUN 21 H Creatinine 1.04 Est GFR ( Amer) > 60 Glucose 121 H Calcium 9.4 Total Bilirubin 1.8 H AST 30 Alkaline Phosphatase 82 Total Protein 7.7 Albumin 4.3 09/11/19 09/11/19 12:53 16:55 Troponin I 0.070 0.100 NT-Pro-B Natriuret Pep 26530 H Impressions: Chest X-Ray 09/11/19 12:45 IMPRESSION: CARDIAC ENLARGEMENT. VASCULAR CONGESTION. Chest/Abdomen CTA 09/11/19 14:03 IMPRESSION: 1. Negative examination for pulmonary embolism. 2. Gross cardiomegaly. Assessment & Plan - Diagnosis (1) Acute hypoxemic respiratory failure Is this a current diagnosis for this admission?: Yes Plan: She has acute hypoxemic respiratory failure due to chronic obstructive pulmonary disease, not overwhelming in CHF (2) Chronic combined systolic and diastolic CHF (congestive heart failure) Is this a current diagnosis for this admission?: Yes (3) COPD (chronic obstructive pulmonary disease) Is this a current diagnosis for this admission?: Yes
[2019-09-11] MEDS ORDERED: RAMIPRIL 5 MG CAPSULE PO ONE (23:00)
[2019-09-11] MEDS ORDERED: FUROSEMIDE 80 MG TABLET PO ONE (23:00)
[2019-09-12] MEDS ORDERED: FUROSEMIDE 80 MG TABLET ONE (00:15)
[2019-09-12] MEDS ORDERED: RAMIPRIL 5 MG CAPSULE ONE (00:15)
[2019-09-12 04:11] LABS: ARTERIAL BLOOD BASE EXCESS 2.2 mmol/L; ARTERIAL BLOOD H2CO3 1.33 mmol/L (1.05-1.35); ARTERIAL BLOOD HCO3 27.2 mmol/L (20-24); ARTERIAL BLOOD O2 SATURATION 90.3 % (94-98); ARTERIAL BLOOD PCO2 44.1 mmHg (35-45); ARTERIAL BLOOD PH 7.41 (7.35-7.45); ARTERIAL BLOOD PO2 58.2 mmHg (80-100); ARTERIAL BLOOD TOTAL CO2 28.6 mmol/L (21-25)
[2019-09-12 04:12] LABS: ARTERIAL BLOOD FIO2 ROOM AIR
[2019-09-12] MEDS: CEFTRIAXONE 1 GM/D5W RTU 1 GM/50 ML RTUPB IV SCH (11:09)
[2019-09-12] MEDS: DOFETILIDE 125 MCG CAPSULE PO SCH ×2 (11:11→17:18)
[2019-09-12] MEDS: RAMIPRIL 5 MG CAPSULE PO SCH (11:11)
[2019-09-12] MEDS: FUROSEMIDE 80 MG TABLET PO SCH (11:11)
[2019-09-12] MEDS: ASPIRIN 81 MG TABLET, ENT COATED PO SCH (11:12)
[2019-09-12] MEDS: CARVEDILOL 6.25 MG TABLET PO SCH ×2 (11:12→21:22)
[2019-09-12] MEDS: APIXABAN 5 MG TABLET PO SCH ×2 (11:12→17:18)
[2019-09-12] MEDS: FAMOTIDINE 20 MG TABLET PO SCH ×2 (11:12→17:18)
--- NOTE | 2019-09-12 17:30 | EKG REPORT ---
SEVERITY:- ABNORMAL ECG - ATRIAL-VENTRICULAR DUAL-PACED COMPLEXES IVCD, CONSIDER ATYPICAL RBBB NONSPECIFIC ST DEPRESSION PVC : Confirmed by: Savi Watts 12-Sep-2019 17:29:52
--- NOTE | 2019-09-12 17:31 | EKG REPORT ---
SEVERITY:- ABNORMAL ECG - V PACED RHYTHM : Confirmed by: Savi Watts 12-Sep-2019 17:30:47
[2019-09-12] MEDS ORDERED: ASPIRIN 81 MG TABLET, CHEWABLE PO ONE (18:37)
[2019-09-12] MEDS: LATANOPROST 0.005% OPH SOLN 2.5 ML OU SCH (21:22)
[2019-09-12] MEDS: ATORVASTATIN CALCIUM 10 MG TABLET PO SCH (21:22)
[2019-09-12] MEDS: OXYCODONE-ACETAMINOPHEN 5-325 MG TABLET PO PRN (21:24)
--- NOTE | 2019-09-12 23:27 | PDOC PROGRESS REPORT ---
Subjective Progress Note for:: 09/12/19 Subjective:: Patient was seen by the bedside, he 2D echo was ordered, Dr. Murphy said she recently had 2D echo done outpatient Reason For Visit: CHF,FEVER,COUGH,SOB Physical Exam Vital Signs: Temp Pulse Resp BP Pulse Ox 98.4 F 70 19 111/58 L 94 09/12/19 19:31 09/12/19 20:00 09/12/19 19:31 09/12/19 19:31 09/12/19 19:31 Intake & Output 09/11/19 09/12/19 09/13/19 06:59 06:59 06:59 Intake Total 1067 644 Balance 1067 644 Weight 59 kg 54.5 kg General appearance: PRESENT: no acute distress Eye exam: PRESENT: PERRLA Respiratory exam: PRESENT: clear to auscultation christina Cardiovascular exam: PRESENT: +S1, +S2 GI/Abdominal exam: PRESENT: soft Neurological exam: PRESENT: alert Results Laboratory Results: 09/11/19 12:53 09/11/19 12:53 09/12/19 03:54 Carbonic Acid 1.33 HCO3/H2CO3 Ratio 20:1 ABG pH 7.41 ABG pCO2 44.1 ABG pO2 58.2 L ABG HCO3 27.2 H ABG O2 Saturation 90.3 L ABG Base Excess 2.2 FiO2 ROOM AIR 09/11/19 09/11/19 09/12/19 12:53 16:55 00:27 Creatine Kinase 409 H CK-MB (CK-2) Troponin I 0.070 0.100 NT-Pro-B Natriuret Pep 13930 H 09/12/19 09/12/19 09/12/19 00:27 06:17 06:17 Creatine Kinase 528 H CK-MB (CK-2) 2.80 3.85 Troponin I NT-Pro-B Natriuret Pep 09/12/19 09/12/19 12:20 12:20 Creatine Kinase 676 H CK-MB (CK-2) 4.99 H Troponin I NT-Pro-B Natriuret Pep Impressions: Chest X-Ray 09/11/19 12:45 IMPRESSION: CARDIAC ENLARGEMENT. VASCULAR CONGESTION. Chest/Abdomen CTA 09/11/19 14:03 IMPRESSION: 1. Negative examination for pulmonary embolism. 2. Gross cardiomegaly. Assessment & Plan - Diagnosis (1) Acute hypoxemic respiratory failure Is this a current diagnosis for this admission?: Yes (2) Chronic combined systolic and diastolic CHF (congestive heart failure) Is this a current diagnosis for this admission?: Yes (3) COPD (chronic obstructive pulmonary disease) Is this a current diagnosis for this admission?: Yes - Time Time Spent with patient: 25-34 minutes
[2019-09-13] MEDS: FUROSEMIDE 80 MG TABLET PO SCH (09:55)
[2019-09-13] MEDS: FAMOTIDINE 20 MG TABLET PO SCH ×2 (09:55→17:58)
[2019-09-13] MEDS: CARVEDILOL 6.25 MG TABLET PO SCH ×2 (09:55→21:52)
[2019-09-13] MEDS: ASPIRIN 81 MG TABLET, ENT COATED PO SCH (09:55)
[2019-09-13] MEDS: APIXABAN 5 MG TABLET PO SCH ×2 (09:55→17:59)
[2019-09-13] MEDS: DOFETILIDE 125 MCG CAPSULE PO SCH ×2 (09:56→17:58)
[2019-09-13] MEDS: RAMIPRIL 5 MG CAPSULE PO SCH (09:56)
[2019-09-13] MEDS: CEFTRIAXONE 1 GM/D5W RTU 1 GM/50 ML RTUPB IV SCH (10:08)
[2019-09-13] MEDS ORDERED: IPRATROPIUM/ALBUTEROL 0.5-2.5 MG/3 ML AMPUL NEB PRN (14:25)
[2019-09-13] MEDS: METHYLPREDNISOLONE INJ 125 MG/2 ML SDV IV SCH ×2 (16:20→22:13)
[2019-09-13] MEDS: OXYCODONE-ACETAMINOPHEN 5-325 MG TABLET PO PRN (17:59)
--- NOTE | 2019-09-13 18:49 | PDOC PROGRESS REPORT ---
Subjective Progress Note for:: 09/13/19 Subjective:: Patient was admitted initially for the management of acute hypoxemic respiratory failure due to COPD but on admission she was not overly wheezing. She initially stopped smoking but she is smoking again, on auscultation of her chest today there is diffuse wheeze suggesting acute COPD exacerbation, she will be started on IV Solu-Medrol Reason For Visit: CHF,FEVER,COUGH,SOB Physical Exam Vital Signs: Temp Pulse Resp BP Pulse Ox 97.9 F 70 16 112/59 L 95 09/13/19 15:24 09/13/19 15:24 09/13/19 15:24 09/13/19 15:24 09/13/19 15:24 Intake & Output 09/12/19 09/13/19 09/14/19 06:59 06:59 06:59 Intake Total 9626 509 1738 Balance 8790 373 2701 Weight 59 kg 56.1 kg General appearance: PRESENT: no acute distress Eye exam: PRESENT: PERRLA Respiratory exam: PRESENT: wheezes Cardiovascular exam: PRESENT: +S1, +S2 GI/Abdominal exam: PRESENT: soft Neurological exam: PRESENT: alert, CN II-XII grossly intact Results Laboratory Results: 09/11/19 12:53 09/11/19 12:53 09/11/19 09/11/19 09/12/19 12:53 16:55 00:27 Creatine Kinase 409 H CK-MB (CK-2) Troponin I 0.070 0.100 NT-Pro-B Natriuret Pep 63373 H 09/12/19 09/12/19 09/12/19 00:27 06:17 06:17 Creatine Kinase 528 H CK-MB (CK-2) 2.80 3.85 Troponin I NT-Pro-B Natriuret Pep 09/12/19 09/12/19 12:20 12:20 Creatine Kinase 676 H CK-MB (CK-2) 4.99 H Troponin I NT-Pro-B Natriuret Pep Impressions: Chest X-Ray 09/11/19 12:45 IMPRESSION: CARDIAC ENLARGEMENT. VASCULAR CONGESTION. Chest/Abdomen CTA 09/11/19 14:03 IMPRESSION: 1. Negative examination for pulmonary embolism. 2. Gross cardiomegaly. Assessment & Plan - Diagnosis (1) Acute hypoxemic respiratory failure Is this a current diagnosis for this admission?: Yes Plan: Continue oxygen therapy via nasal cannula (2) Chronic combined systolic and diastolic CHF (congestive heart failure) Is this a current diagnosis for this admission?: Yes (3) COPD (chronic obstructive pulmonary disease) Is this a current diagnosis for this admission?: Yes (4) Acute exacerbation of chronic obstructive pulmonary disease Is this a current diagnosis for this admission?: Yes Plan: Start IV Solu-Medrol, bronchodilators - Time Time Spent with patient: 25-34 minutes Level of Care: CU
[2019-09-13] MEDS: ATORVASTATIN CALCIUM 10 MG TABLET PO SCH (22:13)
[2019-09-13] MEDS: LATANOPROST 0.005% OPH SOLN 2.5 ML OU SCH (22:13)
[2019-09-14] MEDS: METHYLPREDNISOLONE INJ 125 MG/2 ML SDV IV SCH ×3 (06:33→21:30)
[2019-09-14] MEDS: DOFETILIDE 125 MCG CAPSULE PO SCH ×2 (09:41→17:27)
[2019-09-14] MEDS: FAMOTIDINE 20 MG TABLET PO SCH ×2 (09:42→17:26)
[2019-09-14] MEDS: CARVEDILOL 6.25 MG TABLET PO SCH ×2 (09:42→21:30)
[2019-09-14] MEDS: RAMIPRIL 5 MG CAPSULE PO SCH (09:42)
[2019-09-14] MEDS: APIXABAN 5 MG TABLET PO SCH ×2 (09:42→17:26)
[2019-09-14] MEDS: FUROSEMIDE 80 MG TABLET PO SCH (09:42)
[2019-09-14] MEDS: ASPIRIN 81 MG TABLET, ENT COATED PO SCH (09:42)
--- NOTE | 2019-09-14 15:29 | PDOC PROGRESS REPORT ---
Subjective Progress Note for:: 09/14/19 Subjective:: Patient seen by the bedside, responding to intravenous Solu-Medrol Reason For Visit: CHF,FEVER,COUGH,SOB Physical Exam Vital Signs: Temp Pulse Resp BP Pulse Ox 97.4 F 71 16 125/68 96 09/14/19 11:40 09/14/19 11:40 09/14/19 11:40 09/14/19 11:40 09/14/19 11:40 Intake & Output 09/13/19 09/14/19 09/15/19 06:59 06:59 06:59 Intake Total 644 1170 Balance 644 1170 Weight 56.1 kg 57.3 kg General appearance: PRESENT: no acute distress Respiratory exam: PRESENT: clear to auscultation christina, wheezes Cardiovascular exam: PRESENT: +S1, +S2 GI/Abdominal exam: PRESENT: soft Neurological exam: PRESENT: alert, CN II-XII grossly intact Results Laboratory Results: 09/11/19 12:53 09/11/19 12:53 09/11/19 09/11/19 09/12/19 12:53 16:55 00:27 Creatine Kinase 409 H CK-MB (CK-2) Troponin I 0.070 0.100 NT-Pro-B Natriuret Pep 27192 H 09/12/19 09/12/19 09/12/19 00:27 06:17 06:17 Creatine Kinase 528 H CK-MB (CK-2) 2.80 3.85 Troponin I NT-Pro-B Natriuret Pep 09/12/19 09/12/19 12:20 12:20 Creatine Kinase 676 H CK-MB (CK-2) 4.99 H Troponin I NT-Pro-B Natriuret Pep Impressions: Chest X-Ray 09/11/19 12:45 IMPRESSION: CARDIAC ENLARGEMENT. VASCULAR CONGESTION. Chest/Abdomen CTA 09/11/19 14:03 IMPRESSION: 1. Negative examination for pulmonary embolism. 2. Gross cardiomegaly. Assessment & Plan - Diagnosis (1) Acute hypoxemic respiratory failure Is this a current diagnosis for this admission?: Yes (2) Chronic combined systolic and diastolic CHF (congestive heart failure) Is this a current diagnosis for this admission?: Yes (3) COPD (chronic obstructive pulmonary disease) Is this a current diagnosis for this admission?: Yes (4) Acute exacerbation of chronic obstructive pulmonary disease Is this a current diagnosis for this admission?: Yes Plan: Continue IV Solu-Medrol, bronchodilators - Time Time Spent with patient: 25-34 minutes
--- NOTE | 2019-09-14 17:05 | Progress Note ---
Provider Note Provider Note: CARDIOLOGY PROGRESS NOTE by Dr. Kylie Gonzalez on 09/14/2019. SUBJECTIVE. The patient's wheezing is much improved. Shortness of breath is also improved she has no shortness of breath at rest. She is got very minimal and occasional end expiratory wheezing. She has cough productive of clear sputum. The patient denies any PND or chest pain or discomfort. She does have some orthopnea. There is no leg edema. There is no arrhythmia seen on the monitor. There is no firing of her AICD. PHYSICAL EXAMINATION: The patient is a frail build and appears to be chronically ill. Selected Entries 09/14/19 15:59 Temperature 97.7 F Temperature Oral Source Pulse Rate 71 Respiratory 16 Rate Blood Pressure 103/56 L Blood Pressure 71 Mean BP Location Left Arm BP Position Sitting O2 Sat by Pulse 96 Oximetry Oxygen Delivery Room Air Method : Is atraumatic normocephalic. EYES: Pupils are equal round regular reactive light accommodation. Extraocular movements are normal. There is no conjunctival pallor. There is no scleral icterus. ENT is negative. Neck: Is supple. There is no JVD. Carotids are equal. There is no bruit there is no lymphadenopathy. There is no goiter. There is no accessory muscle respiration use. Trachea central. LUNGS: There is very occasional end expiratory wheezing. There is diminished air entry prolonged expiration. On percussion there is hyperresonance throughout. On palpation there is no chest wall tenderness. HEART: S1-S2 is heard. There is no S3 gallop. There is no S4 gallop. There is no significant tricuspid regurgitation or mitral regurgitation murmurs. There is no aortic stenosis murmur or aortic regurgitation murmur. There is no S3 gallop. There is no S4 gallop. There is no rub. Abdomen: Soft nontender. There is no hepatosplenomegaly. Bowel sounds are well heard. EXTREMITIES: Femorals are diminished there is no femoral bruits leg pulses are diminished. There is no pedal edema. There is no DVT cellulitis. There is no calf tenderness. ILLNESS: The patient is conscious awake alert oriented x3 with no focal deficits. PSYCHIATRIC: The patient judgment insight are intact her affect is normal. Chest X-Ray 09/11/19 12:45 IMPRESSION: CARDIAC ENLARGEMENT. VASCULAR CONGESTION. Chest/Abdomen CTA 09/11/19 14:03 IMPRESSION: 1. Negative examination for pulmonary embolism. 2. Gross cardiomegaly. IMPRESSION/RECOMMENDATION: 1. Acute exacerbation of COPD.: Continue current treatment including bronchodilators. The patient is improving. 2. No definite evidence of congestive heart failure. 3. Cardiomyopathy with severely reduced LV ejection fraction: No seems to be compensated. This is chronic systolic heart failure which is compensated. No evidence of acute exacerbation of CHF. 4. Cardiomyopathy: With severely reduced ejection fraction. Continue current ARB and beta-blockers. 5. Coronary artery disease: History of OH. History of coronary artery bypass graft surgery. Stable no anginal symptoms no evidence of non-ST elevation OH. 6. 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 The last echo showed that these were intact. 7. History of tobacco abuse: Tobacco counseling done. Medications reviewed. Medical regimen and management plan discussed with attending physician Dr. Hart. Medical decision making is of moderate complexity. 40 minutes spent on the patient more than 50% of time spent in direct patient care. Will follow
[2019-09-14] MEDS: ATORVASTATIN CALCIUM 10 MG TABLET PO SCH (21:30)
[2019-09-14] MEDS: OXYCODONE-ACETAMINOPHEN 5-325 MG TABLET PO PRN (21:35)
[2019-09-14] MEDS: LATANOPROST 0.005% OPH SOLN 2.5 ML OU SCH (21:44)
[2019-09-15] MEDS: METHYLPREDNISOLONE INJ 125 MG/2 ML SDV IV SCH ×3 (05:38→22:13)
[2019-09-15] MEDS: FUROSEMIDE 80 MG TABLET PO SCH (09:53)
[2019-09-15] MEDS: ASPIRIN 81 MG TABLET, ENT COATED PO SCH (09:53)
[2019-09-15] MEDS: APIXABAN 5 MG TABLET PO SCH ×2 (09:53→17:07)
[2019-09-15] MEDS: FAMOTIDINE 20 MG TABLET PO SCH ×2 (09:53→17:07)
[2019-09-15] MEDS: CARVEDILOL 6.25 MG TABLET PO SCH ×2 (09:53→22:15)
[2019-09-15] MEDS: DOFETILIDE 125 MCG CAPSULE PO SCH ×2 (09:54→17:07)
[2019-09-15] MEDS: RAMIPRIL 5 MG CAPSULE PO SCH (09:54)
--- NOTE | 2019-09-15 20:28 | PDOC DISCHARGE SUMMARY ---
Impression - Admit/DC Date/PCP Admission Date/Primary Care Provider: 09/11/19 17:19 RONN GARCÍA MD Discharge Date: 09/16/19 - Discharge Diagnosis (1) Acute hypoxemic respiratory failure Is this a current diagnosis for this admission?: Yes (2) Acute exacerbation of chronic obstructive pulmonary disease Is this a current diagnosis for this admission?: Yes (3) Chronic combined systolic and diastolic CHF (congestive heart failure) Is this a current diagnosis for this admission?: Yes (4) COPD (chronic obstructive pulmonary disease) Is this a current diagnosis for this admission?: Yes - Additional Information Resuscitation Status: Full Code Discharge Diet: Cardiac Discharge Activity: Activity As Tolerated, Balance Activity w/Rest, Weigh Daily Referrals: RONN GARCÍA MD [Primary Care Provider] - 09/30/19 10:45 am Prescriptions: Prednisone 40 mg PO DAILY #5 tablet Home Medications: Albuterol Sulfate [Proair HFA Inhalation Aerosol 8.5 gm MDI] 2 puff IH Q6HP PRN 09/11/19 Apixaban [Eliquis 5 mg Tablet] 5 mg PO BID 09/11/19 Aspirin [Ecotrin 81 mg EC Tablet] 81 mg PO DAILY 09/11/19 Carvedilol [Coreg 6.25 mg Tablet] 6.25 mg PO Q12 09/11/19 Dofetilide [Tikosyn] 250 mcg PO BID 09/11/19 Famotidine [Pepcid 20 mg Tablet] 20 mg PO BID 09/11/19 Furosemide [Lasix 80 mg Tablet] 80 mg PO DAILY 09/11/19 Gabapentin [Neurontin 100 mg Capsule] 100 mg PO Q8 09/11/19 Latanoprost [Xalatan 0.005% Oph Soln 2.5 ml] 1 drop OU QHS 09/11/19 Nitroglycerin [Nitrostat 0.4 mg (1/150 Gr) Tabs 25/Bottle] 0.4 mg SL Q5MP PRN 09/11/19 Oxycodone HCl/Acetaminophen [Percocet 5-325 mg Tablet] 1 tab PO Q4HP PRN 09/11/19 Pravastatin Sodium [Pravachol] 40 mg PO QHS 09/11/19 Ramipril [Altace 5 mg Capsule] 5 mg PO DAILY 09/11/19 Prednisone 40 mg PO DAILY #5 tablet 09/15/19 History of Present Illiness History of Present Illness: ALVIN SHAY is a 63 year old female, She has multiple comorbid conditions including chronic, she, status post AICD pacemaker implantation, chronic obstructive pulmonary disease, she was brought to the emergency room by spouse for evaluation of shortness of breath and excessive somnolence, she was extensively evaluated in the emergency room, she had CT angiogram of the chest done in the emergency room this was negative for any acute pathology the only significant finding was elevated BNP but she has underlining chronic Systolic and diastolic heart failureThe arterial blood gas on room air, pH is 7.4, PO2 58.2 PCO2 44.1, bicarbonate 27.2 Hospital Course Hospital Course: Patient was admitted for the management of acute hypoxemic respiratory failure due to acute COPD exacerbation, she was treated with intravenous Solu-Medrol, bronchodilators, this treatment regimen improved patient symptoms when she presented she was somewhat confused due to severe hypoxemia. She has a history of chronic systolic and diastolic heart failure she was seen consultation by Dr. Murphy, cardiology Physical Exam Vital Signs: Temp Pulse Resp BP Pulse Ox 98.0 F 70 16 117/70 95 09/15/19 15:19 09/15/19 15:19 09/15/19 15:19 09/15/19 15:19 09/15/19 15:19 Intake & Output 09/14/19 09/15/19 09/16/19 06:59 06:59 06:59 Intake Total 1170 1230 1120 Balance 1170 1230 1120 Weight 57.3 kg 56.9 kg General appearance: PRESENT: no acute distress Eye exam: PRESENT: PERRLA Respiratory exam: PRESENT: clear to auscultation christina Cardiovascular exam: PRESENT: +S1, +S2 GI/Abdominal exam: PRESENT: soft Neurological exam: PRESENT: alert, CN II-XII grossly intact Results Laboratory Results: WBC 5.1 10^3/uL (4.0-10.5) 09/11/19 12:53 RBC 3.30 10^6/uL (3.72-5.28) L 09/11/19 12:53 Hgb 10.0 g/dL (12.0-15.5) L 09/11/19 12:53 Hct 29.5 % (36.0-47.0) L 09/11/19 12:53 MCV 89 fl (80-97) 09/11/19 12:53 MCH 30.2 pg (27.0-33.4) 09/11/19 12:53 MCHC 33.8 g/dL (32.0-36.0) 09/11/19 12:53 RDW 14.0 % (11.5-14.0) 09/11/19 12:53 Plt Count 178 10^3/uL (150-450) 09/11/19 12:53 Lymph % (Auto) 6.4 % (13-45) L 09/11/19 12:53 [place] % (Auto) 13.1 % (3-13) H 09/11/19 12:53 Eos % (Auto) 0.0 % (0-6) 09/11/19 12:53 Baso % (Auto) 0.5 % (0-2) 09/11/19 12:53 Absolute Neuts (auto) 4.1 10^3/uL (1.7-8.2) 09/11/19 12:53 Absolute Lymphs (auto) 0.3 10^3/uL (0.5-4.7) L 09/11/19 12:53 Absolute Monos (auto) 0.7 10^3/uL (0.1-1.4) 09/11/19 12:53 Absolute Eos (auto) 0.0 10^3/uL (0.0-0.6) 09/11/19 12:53 Absolute Basos (auto) 0.0 10^3/uL (0.0-0.2) 09/11/19 12:53 Seg Neutrophils % 80.0 % (42-78) H 09/11/19 12:53 Carbonic Acid 1.33 mmol/L (1.05-1.35) 09/12/19 03:54 HCO3/H2CO3 Ratio 20:1 09/12/19 03:54 ABG pH 7.41 (7.35-7.45) 09/12/19 03:54 ABG pCO2 44.1 mmHg (35-45) 09/12/19 03:54 ABG pO2 58.2 mmHg (80-100) L 09/12/19 03:54 ABG HCO3 27.2 mmol/L (20-24) H 09/12/19 03:54 ABG Total CO2 28.6 mmol/L (21-25) H 09/12/19 03:54 ABG O2 Saturation 90.3 % (94-98) L 09/12/19 03:54 ABG Base Excess 2.2 mmol/L 09/12/19 03:54 FiO2 ROOM AIR 09/12/19 03:54 Sodium 141.5 mmol/L (137-145) 09/11/19 12:53 Potassium 4.1 mmol/L (3.6-5.0) 09/11/19 12:53 Chloride 103 mmol/L (98-107) 09/11/19 12:53 Carbon Dioxide 27 mmol/L (22-30) 09/11/19 12:53 Anion Gap 12 (5-19) 09/11/19 12:53 BUN 21 mg/dL (7-20) H 09/11/19 12:53 Creatinine 1.04 mg/dL (0.52-1.25) 09/11/19 12:53 Est GFR ( Amer) > 60 (>60) 09/11/19 12:53 Est GFR (MDRD) Non-Af 53 (>60) L 09/11/19 12:53 Glucose 121 mg/dL (75-110) H 09/11/19 12:53 Lactic Acid (Sepsis) 1.4 mmol/L (0.7-2.1) 09/11/19 13:53 Calcium 9.4 mg/dL (8.4-10.2) 09/11/19 12:53 Total Bilirubin 1.8 mg/dL (0.2-1.3) H 09/11/19 12:53 Direct Bilirubin 0.3 mg/dL (0.0-0.4) 09/11/19 12:53 Neonat Total Bilirubin Not Reportable 09/11/19 12:53 Neonat Direct Bilirubin Not Reportable 09/11/19 12:53 Neonat Indirect Bili Not Reportable 09/11/19 12:53 AST 30 U/L (14-36) 09/11/19 12:53 ALT 15 U/L (<35) 09/11/19 12:53 Alkaline Phosphatase 82 U/L (38-126) 09/11/19 12:53 Creatine Kinase 676 U/L (30-135) H 09/12/19 12:20 CK-MB (CK-2) 4.99 ng/mL (<4.55) H 09/12/19 12:20 Troponin I 0.100 ng/mL 09/11/19 16:55 NT-Pro-B Natriuret Pep 40069 pg/mL (<125) H 09/11/19 12:53 Total Protein 7.7 g/dL (6.3-8.2) 09/11/19 12:53 Albumin 4.3 g/dL (3.5-5.0) 09/11/19 12:53 Influenza A (Rapid) NEGATIVE (NEGATIVE) 09/11/19 12:53 Influenza B (Rapid) NEGATIVE (NEGATIVE) 09/11/19 12:53 09/11/19 09/11/19 09/12/19 12:53 16:55 00:27 CK-MB (CK-2) 2.80 Troponin I 0.070 0.100 NT-Pro-B Natriuret Pep 51881 H 09/12/19 09/12/19 06:17 12:20 CK-MB (CK-2) 3.85 4.99 H Troponin I NT-Pro-B Natriuret Pep Impressions: Chest X-Ray 09/11/19 12:45 IMPRESSION: CARDIAC ENLARGEMENT. VASCULAR CONGESTION. Chest/Abdomen CTA 09/11/19 14:03 IMPRESSION: 1. Negative examination for pulmonary embolism. 2. Gross cardiomegaly. Stroke Is this a Stroke Patient?: No Acute Heart Failure - Is this a Heart Failure Patient?: No
[2019-09-15] MEDS: ATORVASTATIN CALCIUM 10 MG TABLET PO SCH (22:13)
[2019-09-15] MEDS: LATANOPROST 0.005% OPH SOLN 2.5 ML OU SCH (22:14)
[2019-09-16] MEDS: METHYLPREDNISOLONE INJ 125 MG/2 ML SDV IV SCH (05:47)
[2019-09-16 08:18] VITALS: BP 123/75
== END 2019-09-16 08:54 | disposition home or self-care (01) | DRG 190 ==
LOC: ER 12:40 → EH 17:19 → 3S 09-12 12:35
PROVIDERS: ADMIT Internal Medicine; ATTEND Internal Medicine
DX: J44.1 Chronic obstructive pulmonary disease with (acute) exacerbation (principal); J96.01 Acute respiratory failure with hypoxia; I50.42 Chronic combined systolic (congestive) and diastolic (congestive) heart failure; I11.0 Hypertensive heart disease with heart failure; I48.91 Unspecified atrial fibrillation; I25.10 Atherosclerotic heart disease of native coronary artery without angina pectoris; E78.5 Hyperlipidemia, unspecified; E03.9 Hypothyroidism, unspecified; M19.90 Unspecified osteoarthritis, unspecified site; D64.9 Anemia, unspecified; F17.200 Nicotine dependence, unspecified, uncomplicated; Z79.01 Long term (current) use of anticoagulants; Z79.52 Long term (current) use of systemic steroids; Z95.810 Presence of automatic (implantable) cardiac defibrillator; Z79.899 Other long term (current) drug therapy; I25.2 Old myocardial infarction; Z95.1 Presence of aortocoronary bypass graft; Z95.2 Presence of prosthetic heart valve
CPT/HCPCS: 36415; 71045; 71275; 80053; 82550; 82553; 82803; 83605; 83880; 84484; 85025; 87040; 87804; 93005; 93010; 94640; 96361; 96374; 96375; 99285; J0696; J2405; J2930; J3490; J7030; J7620

== ENCOUNTER → 2019-10-01 | Outpatient (CLI) | payer MEDICARE, MEDICAID ==
--- NOTE | 2019-10-01 12:48 | RADIOLOGY REPORT (SQ) ---
EXAM DESCRIPTION: CHEST PA/LATERAL COMPLETED DATE/TIME: 10/01/2019 12:18 pm REASON FOR STUDY: CHRONIC COMBINED SYSTOLIC AND DIASTOLIC HRT FAIL COMPARISON: 09/11/2019 EXAM PARAMETERS: NUMBER OF VIEWS: two views TECHNIQUE: Digital Frontal and Lateral radiographic views of the chest acquired. RADIATION DOSE: NA LIMITATIONS: none FINDINGS: LUNGS AND PLEURA: No opacities, masses or pneumothorax. No pleural effusion. MEDIASTINUM AND HILAR STRUCTURES: No masses or contour abnormalities. HEART AND VASCULAR STRUCTURES: Cardiomegaly. No pulmonary edema. BONES: No acute findings. HARDWARE: Pacemaker/defibrillator. Sternotomy wires. Graft markers. OTHER: No other significant finding. IMPRESSION: Cardiomegaly without pulmonary edema. TECHNICAL DOCUMENTATION: JOB ID: [id number] [employer]- All Rights Reserved Reading location - IP/workstation name: [email or web address]
== END ==
LOC: OD 12:06
PROVIDERS: ATTEND Internal Medicine
DX: I50.42 Chronic combined systolic (congestive) and diastolic (congestive) heart failure (principal)
CPT/HCPCS: 71046

== ENCOUNTER → 2019-12-09 | Outpatient (CLI) | payer MEDICARE, MEDICAID ==
--- NOTE | 2019-12-09 14:36 | WOMENS IMAGING REPORT ---
EXAM DESCRIPTION: 3D SCREENING MAMMO BILAT COMPLETED DATE/TIME: 12/09/2019 2:03 pm REASON FOR STUDY: Z12.31 SCREENING MAMMO Z12.31 [id number] SCREEN MAMMOGRAM FOR MALIGNANT NEOPLASM OF B RE COMPARISON: 08/27/2018 and 10/18/2015. EXAM PARAMETERS: Views: Standard craniocaudal and mediolateral oblique views of each breast recorded using digital acquisition and breast tomosynthesis. Read with the assistance of CAD. .[facility] - [employer] Version 9.2 LIMITATIONS: None. FINDINGS: No suspicious masses, suspicious calcifications or architectural distortion. No areas of c oncern. IMPRESSION: NEGATIVE MAMMOGRAM. BIRADS 1. BREAST DENSITY: c. The breasts are heterogeneously dense, which may obscure small masses. BIRAD: ASSESSMENT: 1 NEGATIVE RECOMMENDATION: ROUTINE SCREENING COMMENT: The patient has been notified of the results by letter per MQSA requirements. Additional no tification policies are in place for contacting patient with suspicious or incomplete findings. Quality ID #[id number]: The [employer] recommends an annual screening mammogram for women aged 40 years or over. This facility utilizes a reminder system to ensure that all patients receive reminder letters, and/or direct phone calls for appointments. This includes reminders for routine scr eening mammograms, diagnostic mammograms, or other Breast Imaging Interventions when appropriate. Th is patient will be placed in the appropriate reminder system. TECHNICAL DOCUMENTATION: FINDING NUMBER: (1) ASSESSMENT: (1) JOB ID: [id number] 2010 [employer]- All Rights Reserved Reading location - IP/workstation name: [email or web address]
== END ==
LOC: WI 13:40
PROVIDERS: ATTEND Internal Medicine
DX: Z12.31 Encounter for screening mammogram for malignant neoplasm of breast (principal)
CPT/HCPCS: 77063; 77067

== ENCOUNTER 2019-12-17 12:01 | Outpatient (CLI) | payer MEDICARE, MEDICAID ==
[~2019-12-17 12:01] MED LIST: FERRIC CARBOXYMALTOSE 750 MG in NORMAL SALINE 250 ML IV PRN
[2019-12-17 12:13] VITALS: BP 121/49
== END 2019-12-17 13:22 | disposition home or self-care (01) ==
LOC: II 12:01 → 5TH 12:04 → II 13:22
PROVIDERS: ATTEND Internal Medicine
DX: D50.9 Iron deficiency anemia, unspecified (principal); K90.0 Celiac disease
CPT/HCPCS: 96365; J7050; J1439; 96374

== ENCOUNTER 2019-12-26 11:52 | Outpatient (CLI) | payer MEDICARE, MEDICAID ==
[~2019-12-26 11:52] MED LIST changes: +NORMAL SALINE 250 ML IV PRN
[2019-12-26 12:11] VITALS: BP 103/55
== END 2019-12-26 12:50 | disposition home or self-care (01) ==
LOC: II 11:52 → 5TH 11:55 → II 12:50
PROVIDERS: ATTEND Internal Medicine
DX: D50.9 Iron deficiency anemia, unspecified (principal); K90.0 Celiac disease
CPT/HCPCS: 96374; J7050; J1439